=== PATIENT | female | born 1985 | race Caucasian/White ===

== ENCOUNTER 2022-09-21 08:07 | Outpatient (REF) | payer OTHER, SELFPAY ==
--- NOTE | ~2022-09-21 | CT_ITS ---
EXAMINATION: CT ANGIOGRAM BRAIN WITH CONTRAST CLINICAL INFORMATION: Cerebral aneurysm. COMPARISON: None. TECHNIQUE: Test bolus sequences followed by intravenous administration 75 mL of Omnipaque 350. Helical imaging was performed in the axial plane from the skull base to the skull vertex. Delayed postcontrast imaging of the head was also performed. The data was processed at the geodetic surveyor technologist workstation for generation of MIP sequences. Angled MIPs and volume rendered reformatted images were also generated at an offline 3D workstation. This CT examination was performed using dose optimization techniques as appropriate, variously including the following: *Automated exposure control *Adjustment of mA and/or kV according to patient size (this includes techniques or standardized protocols for targeted exams where dose is matched to indication/reason for exam; i.e. extremities or head) *Use of iterative reconstruction technique DLP: 2067 mGy-cm FINDINGS: Brain: There is no intracranial hemorrhage, large acute infarction, or mass lesion. The ventricles are normal in size and configuration without evidence of hydrocephalus. There is no abnormal intracranial enhancement. The dural venous sinuses are normally opacified. Head CTA: No definite aneurysm is seen. The anterior and posterior circulation arteries appear patent. There is no evidence of focal stenosis. No occlusion is seen. CT/CT angio head IMPRESSION: No definite aneurysm is seen. If there is evidence of intracranial aneurysm on prior imaging and the images are uploaded, a comparison will be made and an addendum issued.
[2022-09-21] MEDS: iohexoL 350 MG/ML 100 ML INFUS..BTL 75 ML IV (09:08)
== END 2022-09-21 08:08 | disposition home or self-care (01) ==
LOC: HO.CT 08:07
PROVIDERS: Visit Provider Psychiatry & Neurology Neurology
DX: I67.1 Cerebral aneurysm, nonruptured (principal)
CPT/HCPCS: 70496; Q9967

== ENCOUNTER 2023-11-02 09:13 | Day surgery (SDC) | payer BC, SELFPAY ==
--- NOTE | ~2023-11-02 | FL_ITS ---
Fluoroscopic lumbar puncture Indication: Pseudotumor cerebra Risks and benefits and possible complications were discussed with the patient and the consent form was signed. Patient was placed prone on the fluoroscopy table. The back was prepped and draped in routine sterile fashion. Betadine was used as a skin antiseptic. Utilizing fluoroscopic guidance, the L2-3 level was accessed with a 22 gague Eric spinal needle and clear CSF fluid obtained. Opening pressure was 19 cm H20 in the left lateral decubitus position. 8 cc of fluid was sent for analysis. The needle was removed without immediate complications. Total fluoroscopy time: 0.2 min FL/FL guided lumbar puncture LP Impression: Fluoroscopic lumbar puncture This procedure was performed by Dano Lawrence PA-C and supervised by Dr. Gabriel.
--- OUTSIDE RECORDS SUMMARY | 2023-11-02 09:15 | XMS_ITS | Continuity of Care Document ---
Author Organization [facility] Address [address] [place] [address]- Care Team Providers Care Cost Estimating Clerk Name Role Phone Alex Oropeza MD Primary Care Physician [place] [facility] [place]13/22 [facility] [address] [place], [place] [address] Allergies, Adverse Reactions, Alerts Substance Reaction Severity Status penicillins Active Immunizations Given and Recorded Vaccine Date Status Refusal Reason SARS-CoV-2 (COVID-19) mRNA BNT-162b2 vac 08/23/21 Recorded SARS-CoV-2 (COVID-19) mRNA BNT-162b2 vac 11/28/20 Recorded SARS-CoV-2 (COVID-19) mRNA BNT-162b2 vac 11/07/20 Recorded influenza virus vaccine, inactivated 04/26/20 Gino rded tetanus/diphtheria/pertussis, acel(Tdap) 04/13/17 Recorded tetanus/diphtheria/pertussis, acel(Tdap) 11/08/10 Recorded Medications amitriptyline 25 mg oral tablet 2, tablet, By Mouth, Daily at bedtime, # 60 tablet, Refills 2, Maintenance, 09/17/22 10:20:00 EST, Route to Pharmacy Electronically, [id number], 165, cm, 12/27/21 8:30:00 EDT, Height, 71, kg, 11/03/20 11:22:00 EDT, Dry Weight Start Date: 09/17/22 Status: Ordered cyclobenzaprine 5 mg oral tablet 1 tablet = 5 mg, By Mouth, 3 times a day, PRN Spasm, # 30 tablet, 0 Refills, Maintenance, 09/13/22 19:53:00 EST, [facility]/pharmacy #[id number], Partial fill upon patient request if the prescription is for a schedule II opioid drug., 165, cm, 12/27/21 8:30:00 EDT... Start Date: 09/13/22 Status: Ordered Excedrin By Mouth, Every 6 hours, 0 Refills, Maintenance, 09/23/20 9:15:00 EST, Partial fill upon patient request if the prescription is for a schedule II opioid drug. Start Date: 09/23/20 Status: Ordered Saxenda 18 mg/3 mL subcutaneous solution 0 Refills, Maintenance, 02/08/22 21:03:00 EDT, Partial fill upon patient request if the prescription is for a schedule II opioid drug. Start Date: 02/08/22 Status: Ordered triamcinolone 55 mcg/inh nasal spray 1 sprays, Daily, 0 Refills, Maintenance, 12/14/21 12:29:00 EDT, Partial fill upon patient request if the prescription is for a schedule II opioid drug. Start Date: 12/14/21 Status: Ordered Tylenol 8 Hour 650 mg oral tablet, extended release 2 tablet = 1,300 mg, By Mouth, Every 8 hours, 0 Refills, Maintenance, 09/23/20 9:15:00 EST, Partialfill upon patient request if the prescription is for a schedule II opioid drug. Start Date: 09/23/20 Status: Ordered Problem List Condition Confirmation Course Effective Dates Status H ealth Status Informant Allergic rhinitis Confirmed 02/19/16 Active Gastroesophageal reflux disease Confirmed 02/19/16 Active Migraine; Dr Gonzalez Confirmed 02/19/16 Active Obese class I Confirmed Active Social History Social History Type Response Smoking Status Never (less than 100 in lifetime) entered on: 09/23/20 Sex Patient Care team information Care Team Personnel Name: Alex Oropeza MD Position: [facility] Primary Care Physician Member Role: PCP Address: Address: [address] [place] [address]- Care Team Related Persons Name: GRACIE BOB Address: home [address] [place] [id number]
--- OUTSIDE RECORDS SUMMARY | 2023-11-02 09:15 | XMS_ITS | Continuity of Care Document ---
Author Organization [facility] Address [address] [place] [address]- Care Team Providers Care Computer Numerical Control Machinist Name Role Phone Alex Oropeza MD Primary Care Physician [place] [facility] [place] 09/19/22 [facility] [address] [place], [place] [address] Allergies, Adverse Reactions, Alerts Substance Reaction [...] 09/17/22 10:20:00 EST, Route to Pharmacy Electronically, [id number], 165, cm, 12/27/21 8:30:00 EDT, Height, 71, kg, 11/03/20 11:22:00 EDT, Dry Weight Start Date: 09/17/22 Status: Ordered cyclobenzaprine 5 mg oral tablet 1 tablet = 5 mg, By Mouth, 3 times a day, PRN Spasm, # 30 tablet, 0 Refills, Maintenance, 09/13/22 19:53:00 EST, [facility]/pharmacy #[id number], Partial fill upon patient request if [...] Team Personnel Name: Alex Oropeza MD Position: [facility] Primary Care Physician Member Role: PCP Address: Address: [address] [place] [address]- Care Team Related Persons Name: GRACIE BOB Address: home [address] [place] [id number]
--- OUTSIDE RECORDS SUMMARY | 2023-11-02 09:15 | XMS_ITS | Continuity of Care Document ---
Author Organization [facility] Address [address] [place] [address]- Care Team Providers Care Strategic Consultant Name Role Phone Alex Oropeza MD Primary Care Physician [phone] Encounter [facility] [place] Date(s): 04/06/23 - 05/06/23 [facility] [address] [place], [place] [address] Allergies, Adverse Reactions, Alerts Substance Reaction Severity Status penicillins Active Immunizations Given and Recorded Vaccine Date Status Refusal Reason SARS-CoV-2 (COVID-19) mRNA BNT-162b2 vac 08/23/21 Recorded SARS-CoV-2 (COVID-19) mRNA BNT-162b2 vac 11/28/20 Recorded SARS-CoV-2 (COVID-19) mRNA BNT-162b2 vac 11/07/20 Recorded influenza virus vaccine, inactivated 04/26/20 Gino rded tetanus/diphtheria/pertussis, acel(Tdap) 04/13/17 Recorded tetanus/diphtheria/pertussis, acel(Tdap) 11/08/10 Recorded Medications acetic acid-hydrocortisone otic 2%-1% solution See Instructions, 2 drops each ear BID prn itching, # 10 mL, 2 Refills, Maintenance, 04/11/23 8:16:00 EDT, [facility]/pharmacy #[id number], Partial fill upon patient request if the prescription is for a schedule II opioid drug., 2 drops each ear BID prn itching, 1... Start Date: 04/11/23 Status: Ordered amitriptyline 25 mg oral tablet 2, tablet, By Mouth, Daily at bedtime, # 60 tablet, Refills 2, Maintenance, 09/17/22 10:20:00 EST, Route to Pharmacy Electronically, [id number], 165, cm, 12/27/21 8:30:00 EDT, Height, 71, kg, 11/03/20 11:22:00 EDT, Dry Weight Start Date: 09/17/22 Status: Ordered cyclobenzaprine 5 mg oral tablet 1 tablet = 5 mg, By Mouth, 3 times a day, PRN Spasm, # 45 tablet, 1 Refills, Maintenance, 01/29/23 16:30:00 EDT, [facility]/pharmacy #[id number], Partial fill upon patient request if the prescription is for a schedule II opioid drug., 165, cm, 12/27/21 8:30:00 EDT... Start Date: 01/29/23 Status: Ordered Excedrin By Mouth, Every 6 hours, 0 Refills, Maintenance, 09/23/20 9:15:00 EST, Partial fill upon patient request if the prescription is for a schedule II opioid drug. Start Date: 09/23/20 Status: Ordered triamcinolone 55 mcg/inh nasal spray [...] opioid drug. Start Date: 09/23/20 Status: Ordered Wegovy (1.7 mg dose) subcutaneous solution INJECT 1 PEN INTO SKIN ONCE WEEKLY Start Date: 04/11/23 Status: Ordered Problem List Condition Confirmation Course Effective Dates Status H ealth Status Informant Allergic rhinitis Confirmed 02/19/16 Active Gastroesophageal reflux disease Confirmed 02/19/16 Active Migraine; Dr Gonzalez Confirmed 02/19/16 Active Social History Social History Type Response Smoking Status Never (less than 100 in lifetime) entered on: 09/23/20 Sex Patient Care team information Care Team Personnel Name: Alex Oropeza MD Position: S Physician - Primary Care Member Role: PCP Address: Address: [address] [place] [address] Team Related Persons Name: GRACIE BOB Address: home [address] [place] [address]
--- OUTSIDE RECORDS SUMMARY | 2023-11-02 09:15 | XMS_ITS | Continuity of Care Document ---
Author Organization [facility] Address [address] [place] [address]- Care Team Providers Care Optical Glass Etcher Name Role Phone Alex Oropeza MD Primary Care Physician [phone] [place] [facility] [place] - 10/05/[address] [address]- Encounter Diagnosis Postoperative state(Discharge Diagnosis) - 10/04/20 Acute blood loss anemia(Discharge Diagnosis) - 10/04/20 Discharge Disposition: A-D/C Home Attending Physician: Shiloh Wolff MD Admitting Physician: Shiloh Wolff MD Referring Physician: Shiloh Wolff MD Allergies, Adverse Reactions, Alerts Substance Reaction Severity Status penicillins Active Medications amitriptyline 25 mg oral tablet 25 mg, 1, tablet, By Mouth, Daily at bedtime, Refills 0, Maintenance, 09/23/20 9:15:00 EST, Partialfill upon patient request if the prescription is for a schedule II opioid drug. Start Date: 09/23/20 Status: Ordered Excedrin By Mouth, Every 6 hours, 0 Refills, Maintenance, 09/23/20 9:15:00 EST, Partial fill upon patient request if the prescription is for a schedule II opioid drug. Start Date: 09/23/20 Status: Ordered ibuprofen 600 mg oral tablet 600 mg, 1, tablet, By Mouth, Every 6 hours, PRN, # 40 tablet, Refills 0, Tot. Refills 0, Acute 11/04/20 15:19:00 EDT, Pain , Moderate, 10/04/20 15:19:00 EDT, Route to Pharmacy Electronically, [facility] #[id number], Partial fill upon patient requ... Start Date: 10/04/20 Stop Date: 11/04/20 Status: Ordered oxyCODONE 5 mg oral tablet 5 mg, 1, tablet, By Mouth, Every 6 hours, PRN, May fill less than prescribed., # 10 tablet, Refills0, Tot. Refills 0, Acute 11/04/20 15:19:00 EDT, Pain , Severe, 10/04/20 15:19:00 EDT, Route to Pharmacy Electronically, [facility] #[id number], [place]... Start Date: 10/04/20 Stop Date: 11/04/20 Status: Ordered Tylenol 325 mg oral tablet 325 mg, 1, tablet, By Mouth, Every 4 hours, # 60 tablet, Refills 0, Tot. Refills 0, Acute 11/04/20 15:19:00 EDT, 10/04/20 15:19:00 EDT, Route to Pharmacy Electronically, [facility] #[id number], Partial fill upon patient request if the prescriptio... Start Date: 10/04/20 Stop Date: 11/04/20 Status: Ordered Tylenol 8 Hour 650 mg oral tablet, extended release 2 tablet = 1,300 mg, By Mouth, Every 8 hours, 0 Refills, Maintenance, 09/23/20 9:15:00 EST, Partialfill upon patient request if the prescription is for a schedule II opioid drug. Start Date: 09/23/20 Status: Ordered Problem List Diagnosis Diagnosis Type Effective Dates Health Status Clinical Service Informant Postoperative state Discharge Diagnosis 10/04/20 Acute blood loss anemia Discharge Diagnosis 10/04/20 Vital Signs Most recent to oldest [Reference Range]: 1 2 3 Weight 71.8 kg (10/05/20 4:50 AM) 69 kg (10/04/20 2:39 PM) Oxygen Saturation [94-100 %] 100 % (10/05/20 7:46 AM) 97 % (10/05/20 4:49 AM) 98 % (10/05/20 12:48 AM) Pulse Rate [55-90 bpm] 92 bpm *H* (10/05/20 7:46 AM) 92 bpm *H* (10/05/20 4:49 AM) 102 bpm *H* (10/05/20 12:48 AM) Blood Pressure [90-138/55-84 mm Hg] 108/70mm Hg (10/05/20 7:46 AM) 94/58mm Hg (10/05/20 4:49 AM) 99/56mm Hg (10/05/20 12:48 AM) Respiratory Rate [16-30 br/min] 18 br/min (10/05/20 7:46 AM) 18 br/min (10/05/20 4:49 AM) 18 br/min (10/05/20 12:48 AM) Temperature [96.8-100.4 DegF] 98.1 DegF (10/05/20 7:46 AM) 98.1 DegF (10/05/20 4:49 AM) 98 DegF (10/05/20 12:48 AM) Liters per Minute 2 L/min (10/04/20 6:10 PM) 2 L/min (10/04/20 6:05 PM) 2 L/min (10/04/20 6:00 PM) Mode of Delivery (Oxygen) Room air (10/05/20 7:46 AM) Room air (10/05/20 4:49 AM) Room air (10/05/20 12:48 AM) Blood pressure sites Arm, left (10/05/20 7:46 AM) Arm, left (10/05/20 4:49 AM) Arm, left (10/05/20 12:48 AM) Temperature Route Oral (10/05/20 7:46 AM) Oral (10/05/20 4:49 AM) Oral (10/05/20 12:48 AM) Dry Weight 69 kg (10/04/20 2:39 PM) Weight Obtained Via Bed scale (10/05/20 4:50 AM) Standing scale (10/04/20 2:39 PM) Dry Weight Obtained Via Standing scale (10/04/20 2:39 PM) Social History Social History Type Response Smoking Status Never (less than 100 in lifetime) entered on: 09/23/20 Sex
--- OUTSIDE RECORDS SUMMARY | 2023-11-02 09:15 | XMS_ITS | Continuity of Care Document ---
Author Organization [facility] Address [address] [place] [address]- Care Team Providers Care Fixed Income Portfolio Manager Name Role Phone Alex Oropeza MD Primary Care Physician [place] [facility] [place]/06[place]23 - 05/06/23 [facility] [address] [place], [place] [address] Allergies, Adverse Reactions, Alerts Substance Reaction Severity [...] mL, 2 Refills, Maintenance, 04/11/23 8:16:00 EDT, [facility]/pharmacy #[id number], Partial fill upon patient request if the prescription is for a schedule II opioid drug., 2 drops each ear BID prn itching, 1... Start Date: 04/11/23 Status: Ordered amitriptyline 25 mg oral tablet 2, tablet, By Mouth, Daily at bedtime, # 60 tablet, Refills 2, Maintenance, 09/17/22 10:20:00 EST, Route to Pharmacy Electronically, [id number], 165, cm, 12/27/21 8:30:00 EDT, Height, 71, kg, 11/03/20 11:22:00 EDT, Dry Weight Start Date: 09/17/22 Status: Ordered cyclobenzaprine 5 mg oral tablet 1 tablet = 5 mg, By Mouth, 3 times a day, PRN Spasm, # 45 tablet, 1 Refills, Maintenance, 01/29/23 16:30:00 EDT, [facility]/pharmacy #[id number], Partial fill upon patient request if [...] Primary Care Member Role: PCP Address: Address: [address] [place] [address] Team Related Persons Name: GRACIE BOB Address: home [address] [place] [address]
--- OUTSIDE RECORDS SUMMARY | 2023-11-02 09:15 | XMS_ITS | Continuity of Care Document ---
Author Organization [facility] Address [address] [place] [address]- Care Team Providers Care Blower Insulator Name Role Phone Alex Oropeza MD Primary Care Physician [phone] Encounter [facility] [place] Date(s): 03/28/22 - 04/27/22 [facility] [address] [place], [place] [address] Allergies, Adverse Reactions, Alerts Substance Reaction Severity Status penicillins Active Immunizations Given and Recorded Vaccine Date Status Refusal Reason SARS-CoV-2 (COVID-19) mRNA BNT-162b2 vac 08/23/21 Recorded SARS-CoV-2 (COVID-19) mRNA BNT-162b2 vac 11/28/20 Recorded SARS-CoV-2 (COVID-19) mRNA BNT-162b2 vac 11/07/20 Recorded influenza virus vaccine, inactivated 04/26/20 Gino rded tetanus/diphtheria/pertussis, acel(Tdap) 04/13/17 Recorded tetanus/diphtheria/pertussis, acel(Tdap) 11/08/10 Recorded Medications amitriptyline 25 mg oral tablet 25 [...] on: 09/23/20 Sex Patient Care team information Personnel Name: Alex Oropeza MD Address: Address: [address] [place] [address]
--- OUTSIDE RECORDS SUMMARY | 2023-11-02 09:15 | XMS_ITS | Continuity of Care Document ---
Author Organization [facility] Address [address] [place] [address]- Care Team Providers Care Prepress Specialist Name Role Phone Alex Oropeza MD Primary Care Physician Encounter [facility] [place] Date(s): 07/27/22 - 08/26/22 [facility] [address] [place], [place] [address] Allergies, Adverse Reactions, Alerts Substance Reaction Severity Status penicillins Active Immunizations Given and Recorded Vaccine Date Status Refusal Reason SARS-CoV-2 (COVID-19) mRNA BNT-162b2 vac 08/23/21 Recorded SARS-CoV-2 (COVID-19) mRNA BNT-162b2 vac 11/28/20 Recorded SARS-CoV-2 (COVID-19) mRNA BNT-162b2 vac 11/07/20 Recorded influenza virus vaccine, inactivated 04/26/20 Gino rded tetanus/diphtheria/pertussis, acel(Tdap) 04/13/17 Recorded tetanus/diphtheria/pertussis, acel(Tdap) 11/08/10 Recorded Medications amitriptyline 25 mg oral tablet 50 mg, 2, tablet, By Mouth, Daily at bedtime, # 60 tablet, Refills 0, Tot. Refills 0, Maintenance, 08/19/22 9:12:00 EST, Route to Pharmacy Electronically, [facility]/pharmacy #[id number], Partial fill upon patient request if the prescription is for a schedule II o... Start Date: 08/19/22 Status: Ordered Excedrin By Mouth, Every 6 [...] Team Personnel Name: Alex Oropeza MD Position: [facility] Primary Care Physician Member Role: PCP Address: Address: [address] [place] [address]- Care Team Related Persons Name: LISBETH GRACIE Address: [address] [address]
--- OUTSIDE RECORDS SUMMARY | 2023-11-02 09:15 | XMS_ITS | Continuity of Care Document ---
Author Organization [facility] ter Address [address] [place] [address]- Care Team Providers Care Principal Android Developer Name Role Phone Alex Oropeza MD Primary Care Physician Encounter [facility] [place] Date(s): 08/09/23 - 08/09/[address] [address] Discharge Disposition: A-D/C Home Attending Physician: Zahira Dumont MD Admitting Physician: Zahira Dumont MD Referring Physician: Zahira Dumont MD Allergies, Adverse Reactions, Alerts Substance Reaction [...] mL, 2 Refills, Maintenance, 04/11/23 8:16:00 EDT, [facility]/pharmacy #[id number], Partial fill upon patient request if the prescription is for a schedule II opioid drug., 2 drops each ear BID prn itching, 1... Start Date: 04/11/23 Status: Ordered amitriptyline 25 mg oral tablet 2, tablet, By Mouth, Daily at bedtime, # 60 tablet, Refills 2, Maintenance, 09/17/22 10:20:00 EST, Route to Pharmacy Electronically, [facility] STORE [id number], 165, cm, 12/27/21 8:30:00 EDT, Height, 71, kg, 11/03/20 11:22:00 EDT, Dry Weight Start Date: 09/17/22 Status: Ordered cyclobenzaprine 5 mg oral tablet 1 tablet = 5 mg, By Mouth, 3 times a day, PRN Spasm, # 45 tablet, 1 Refills, Maintenance, 01/29/23 16:30:00 EDT, [facility]/pharmacy #[id number], Partial fill upon patient request if [...] Active Migraine; Dr Gonzalez Confirmed 02/19/16 Active Procedures Procedure Date Related Diagnosis Body Site Status Hysteroscopic polypectomy 08/09/23 Completed Vital Signs Most recent to oldest [Reference Range]: 1 2 3 Height 165 cm (08/09/23 9:22 AM) 165 cm (08/06/23 4:35 PM) Weight 69.0 kg (08/09/23 9:22 AM) 67 kg (08/06/23 4:35 PM) Oxygen Saturation [94-100 %] 99 % (08/09/23 11:15 AM) 100 % (08/09/23 11:00 AM) 100 % (08/09/23 10:45 AM) Pulse Rate [55-90 bpm] 88 bpm (08/09/23 9:22 AM) Body Mass Index [18.5-24.99 kg/m2] 25.34 kg/m2 *H* (08/09/23 9:22 AM) 24.61 kg/m2 (08/06/23 4:35 PM) Blood Pressure [90-138/55-84 mm Hg] 140/90mm Hg *H* (08/09/23 11:15 AM) 131/85mm Hg (08/09/23 11:00 AM) 117/77mm Hg (08/09/23 10:45 AM) Respiratory Rate [16-30 br/min] 20 br/min (08/09/23 11:15 AM) 15 br/min *L* (08/09/23 11:00 AM) 15 br/min *L* (08/09/23 10:45 AM) Temperature [96.8-100.4 DegF] 98.4 DegF (08/09/23 11:15 AM) 98.6 DegF (08/09/23 10:45 AM) 97.7 DegF (08/09/23 9:22 AM) Mode of Delivery (Oxygen) Room air (08/09/23 10:45 AM) Room air (08/09/23 9:22 AM) Blood pressure sites Arm, right (08/09/23 10:45 AM) Arm, right (08/09/23 9:22 AM) Temperature Route Temporal (08/09/23 11:15 AM) Temporal (08/09/23 10:45 AM) Temporal (08/09/23 9:22 AM) Dry Weight 69.0 kg (08/09/23 9:22 AM) 67 kg (08/06/23 4:35 PM) Weight Obtained Via Standing scale (08/09/23 9:22 AM) Patient/family stated (08/06/23 4:35 PM) Dry Weight Obtained Via Standing scale (08/09/23 9:22 AM) Patient/family stated (08/06/23 4:35 PM) Social History Social History Type Response Smoking Status Never (less than 100 in lifetime) entered on: 09/23/20 Sex Note * Stephie Lynn RN: PERFORM Event Display: Discharge/Transfer Note Hospital Authored Date: [id number] Nursing Discharge Note Entered On: 08/09/2023 11:43 EST Performed On: 08/09/2023 11:42 EST by Stephie Lynn RN Nursing Discharge Note 2 Discharge Time : 08/09/2023 11:42 EST Discharge Level of Care at Discharge : Home/Long Term/Foster Care Patient Left Unit Via : Wheelchair Patient Accompanied Off Unit with : Significant other DC Instructions Provided & Signed by Pt : Yes Patient Understands D/C Instructions : Yes Verbalized Understanding of D/C Plan By : Family, Patient Patient Instructions Discharge Signed : Yes Did Pt have Specialty Bed or Wound Vac : No Stephie Lynn RN - 08/09/2023 11:42 EST * Stephie Lynn RN: PERFORM Event Display: Patient Education/Instruction Authored Date: [id number] Surgery Adult Discharge Instructions [place] [id number] Name: PEDRO GALVEZ : 1985?? Visit: 08/09/2023 08:59?? Current Date: 08/09/2023 11:27 ?? Account: [id number]?? Surgery Discharge Instructions We would like to thank you for allowing us to assist you with your healthcare needs. The following includes patient education materials and information regarding your injury/illness. Our entire staffstrives to provide an excellent experience for our patients and their families. PLEASE ENSURE YOU FOLLOW-UP PER THE INSTRUCTIONS BELOW! ?? YOUR OPINION IS IMPORTANT TO US! Please complete the survey you may receive by mail or email. Your feedback will be used to make improvements to the healthcare experiences of our patients and their families. Surveys are administered by [employer] ?? If further treatment with your primary care physician or another doctor is recommended, it is important for you to keep the appointment. Call your primary care physician or return to the Emergency Department immediately if your condition worsens, fails to improve, or new symptoms develop. If you need to find a doctor, you can call [facility] for a referral at [phone] or toll free at [phone] ([phone]) or log in to [email or web address].. ?? [facility], in keeping with [facility] guidance, no longer requires face masks for staff, patientsor visitors in most situations. Similiar to time spent indoors at other locations, there is the chance that you were exposed to repiratory viruses during your time with us (such as flu or COVID-19). If you develop symptoms concerning for a viral respiratory infection, please seek testing (and treatment if indicated) from your medical provider or home test kit. ?? You can view and manage your care through the patient portal or by using a health care jose of your choosing. [employer] is a website that allows you to securely view your medical information including your hospital discharge summary, office visit summaries, medications and follow-up visits. You can also request appointments, renew medications, and request access to your medical information using a health care jose of your choosing, or just ask a question. You are entitled to know the individuals who participated in your treatment. This information is available within your medical record and will be provided upon your request. You can enroll at [email or web address] or register d uring your next office visit. You have been discharged from [facility], Patient Care Unit: [facility]??. If you have any questions regarding these instructions after you leave, please call us and we will be happy to assist you. [facility] Your Care Team Attending Physician Zahira Dumont MD?? Consulting Providers Socorro Kiser MD?? Discharging Providers Georgette Blackburn MD Reason for Admission AUBDS CS Your Diagnosis Abnormal uterine bleeding Endometrial polyp Primary Care Provider Alex Oropeza MD? Advance Directive Health Care Proxy on File Yes - Health Care Proxy What to do next Instructions From Your Doctor ?? Orders? 08/09/23 10:35:00 EST?? Instructions from your Care Team ?? You received Tylenol 975mg and Celebrex??400mg 08/09/23 at 9:30am ?? You Need to Schedule the Following Appointments Follow Up with??Zahira Dumont Where: [address] [place] [address] [facility], [place] [address]- Business (1) Follow Up with??Alex Oropeza When:??In 0 days Discharge Medications PEDRO GALVEZ :1985 Visit Date:08/09/2023 Medications: Please continue your medications until treatment is completed or stopped by your provider. You may resume your daily prescription medications. Discuss any questions related to medications with your provider. What How Much When Instructions Next Dose Unchanged Acetaminophen (Tylenol 8 Hour 650 mg oral tablet, extended release) 2 tab(s) Oral Every 8 hours Unchanged Acetic Acid/ Hydrocortisone Otic (acetic acid-hydrocortisone otic 2%- 1% solution) See instructions 2 drops each ear BID prn itching ?? Unchanged amiTRIPTYLINE (amitriptyline 25 mg oral tablet) 2 tab(s) Oral Daily at Bedtime Unchanged Apap/ Asa/ Caffeine (Excedrin) Oral Every 6 hours Unchanged Cyclobenzaprine (cyclobenzaprine 5 mg oral tablet) 1 tab(s) Oral 3 times a day as needed for Spasm Unchanged semaglutide (Wegovy (1.7 mg dose) subcutaneous solution) INJECT 1 PEN INTO SKIN ONCE WEEKLY ?? Unchanged Triamcinolone Nasal (triamcinolone 55 mcg/ inh nasal spray) 1 spray(s) Daily Allergies (NKA means No Known Allergies) penicillins Education Materials Below is the list of Educational Leaflet Providered with your Discharge Instructions. Surgery Voiding Instructions?? Surgery Medical Daystay Surgical Overnight Discharge Instructions?? Valuables and Belongings I fully understand and agree that [facility] accepts no responsibility for all my personal property including clothing, toilet articles, radios, jewelry, dentures, hearing aids, rings, money, or any other property that is in my possession or is brought to me after admission. I understand certain valuables may be placed in a hospital safe for a short period of time. I understand that the hospital is not liable for loss or damage due to accident, fire, or other natural occurrence while said property is in the safe. I accept full responsibility for any personal property that I keep with me, and will not hold the hospital responsible in case of loss or disappearance. I acknowledge that i have been encouraged to send valuables and belongings home. ?? Review of Valuable and Belonging List: With patient, With family Date for Pt to Sign Valuables/Belongings: 08/09/23 09:22:00 ?? Valuables & Belongings ?? Clothes Electronic devices Jewelry Monetary Items Personal devices Miscellaneous Medications (Valuables) Valuables at Bedside Pants, Shirt, Shoes, Undergarments ? Purse ? Valuables Sent Home ?? Cell phone ? Valuables Sent to Security ? Other Discharge Information ? Pulmonary Rehab Status?? Pulmonary Rehab Discharge Status?? Respiratory Rate: 20 br/min ? Common Emergency Awareness Tips IS IT A STROKE? Act FAST and Check for these signs: FACE Does the face look uneven? ARM Does one arm drift down? SPEECH Does their speech sound strange? TIME Call at any sign of stroke ?? Heart Attack Signs Chest discomfort: Most heart attacks involve discomfort in the center of the chest and lasts more than a few minutes, or goes away and comes back. It can feel like uncomfortable pressure, squeezing, fullness or pain. Discomfort in upper body: Symptoms can include pain or discomfort in one or both arms, back, neck, jaw or stomach. Shortness of breath: With or without discomfort. Other signs: Breaking out in a cold sweat, nausea, or lightheaded. Remember, MINUTES DO MATTER. If you experience any of these heart attack warning signs, call to get immediate medical attention! ?? Smoking can increase your chances of developing chronic health problems and can cause harmful effects to other family members in your house. If you smoke, you are strongly encouraged to quit. Please call [facility] at [phone] or [phone] ([phone]) or log in to [email or web address] for referrals to smoking cessation programs. ?? The National Suicide Prevention Hotline is available 05/02 if you or someone you know needs to find a reason to keep living. By calling 0-644-971-trgn (6961) you'll be connected to a skilled, trained counselor at a crisis center in your area. SURGERY DISCHARGE INSTRUCTIONS SIGNATURE PAGE PEDRO GALVEZ Location:[facility] Registration Date and Time:08/09/2023 08:59 EST Primary Care Physician: Alex Oropeza MD, Attending Physician: Zahira Dumont MD, I PEDRO GALVEZ, have received the above patient education materials/instructions and have verbalized understanding. If ambulance or transport services are being used I further acknowledge being given a choice of service. ?? If you need to contact me, please call me at this number: . Patient/Bottom Saw Operator Name: Patient/Bottom Saw Operator Signature: Relationship to Patient: Witness Name/Signature: Date: * Stephie Lynn RN: PERFORM, SIGN, VERIFY Event Display: Patient Education Handout Authored Date: [id number] * Stephie Lynn RN: PERFORM Event Display: Patient Education Leaflets Authored Date: [id number] Surgery Voiding Instructions ?? 305 Home Voiding Instructions ?? You should pass urine 6-8 hours after you are discharged from the [facility] Room. The amount should be about one cup of urine with each voiding. Be aware that you should feel like you are emptying your bladder completely. If you are passing very small amounts of urine frequently it could be over-flow and you may not be emptying your bladder. Things to try to encourage urination: Drink warm coffee or tea ??? unless your physician told you not to. Blow bubble through your straw into a small glass of water. Trickle lukewarm water onto your private area. Walk around as much as able. Let the faucet run slowly. Put your hand in warm water. Try to relax. If you have any concerns about urination, in the above time frame after your discharge, you should call your Doctor. ? * Stephie Lynn RN: PERFORM Event Display: Patient Education Leaflets Authored Date: [id number] Surgery Medical Daystay Surgical Overnight Discharge Instructions ?? 295 Medical Daystay/Surgical Overnight Discharge Instructions ? Since your coordination and judgment may be altered by medication and/or anesthesia, a responsible adult must drive you home from the hospital. ? If you have received medication for pain or sedation while under our care, you should not drive, operate machinery, drink alcohol, or sign any legal documents for 24 hours.?? You should have someone with you at home tonight. ? Remain at home the day of discharge.?? You may be up and about unless otherwise instructed by your physician. ? You may resume your daily prescription medication schedule.?? Any depressant medication should be avoided for 24 hours unless otherwise instructed by your surgeon or anesthesiologist. ? Call your physician for a follow-up appointment.? If you experience unusual or severe pain not relied by your pain medication, excessive bleedingor drainage, persistent nausea and vomiting, excessive swelling or redness, foul odor from incisionsite or fever over 100.6F, you need to call your physician. ? A follow-up phone call by a nurse will be made the day after your procedure.?? If you have stayed with us over night, you will not be receiving a follow-up phone call. ? Nausea and vomiting are a common side effect of prescription pain medication.?? We recommend that pills are not taken on an empty stomach.?? While taking any prescription pain medication you should not drive or drink alcohol. ? Patient Care team information Care Team Personnel Name: Alex Oropeza MD Position: [facility] Physician - Primary Care Member Role: PCP Address: Address: [address] [place] [address]- Care Team Related Persons Name: GRACIE BOB Address: [address] [address]
--- OUTSIDE RECORDS SUMMARY | 2023-11-02 09:15 | XMS_ITS | Continuity of Care Document ---
Author Organization [facility] Heather Anguiano [facility] Address [address] [place] [address]- Care Team Providers Care Synthetic Staple Extruder Name Role Phone Alex Oropeza MD Primary Care Physician [id number] Date(s): 05/06/21 - 06/05/21 [facility] Heather [facility] [address] [place] [address]- Attending Physician: Migue Soto Admitting Physician: Migue Soto Referring Physician: AdmMigue suarez Allergies, Adverse Reactions, Alerts Substance Reaction Severity [...] opioid drug. Start Date: 09/23/20 Status: Ordered Tylenol 8 Hour 650 mg oral tablet, extended release 2 tablet = 1,300 mg, By Mouth, Every 8 hours, 0 Refills, Maintenance, 09/23/20 9:15:00 EST, Partialfill upon patient request if the prescription is for a schedule II opioid drug. Start Date: 09/23/20 Status: Ordered Social History Social History Type Response Smoking Status Never (less than 100 in lifetime) entered on: 09/23/20 Sex
--- OUTSIDE RECORDS SUMMARY | 2023-11-02 09:15 | XMS_ITS | Continuity of Care Document ---
Author Organization [facility] Address [address] [place] [address]- Care Team Providers Care Party Plan Sales Agent Name Role Phone Alex Oropeza MD Primary Care Physician [phone] Encounter [facility] Date(s): 07/27/22 - 08/26/22 [facility] [address] [place], [place] [address] Allergies, Adverse Reactions, Alerts Substance Reaction [...] 08/19/22 9:12:00 EST, Route to Pharmacy Electronically, [facility]/pharmacy #[id number], Partial fill upon patient request if the [...] Team Personnel Name: Alex Oropeza MD Position: [facility] Primary Care Physician Member Role: PCP Address: Address: [address] [place] [address]- Care Team Related Persons Name: LISBETH GRACIE Address: [address] [address]
--- OUTSIDE RECORDS SUMMARY | 2023-11-02 09:15 | XMS_ITS | Continuity of Care Document ---
Author Organization [facility] Address [address] [place] [address]- Care Team Providers Care Fibre Cement Moulder Name Role Phone Alex Oropeza MD Primary Care Physician [place] [facility] [place] 05/21/23 - 06/20/23 [facility] [address] [place] [address]- [place] Allergies, Adverse Reactions, Alerts Substance Reaction Severity [...] mL, 2 Refills, Maintenance, 04/11/23 8:16:00 EDT, [facility]/pharmacy #[id number], Partial fill upon patient request if the prescription is for a schedule II opioid drug., 2 drops each ear BID prn itching, 1... Start Date: 04/11/23 Status: Ordered amitriptyline 25 mg oral tablet 2, tablet, By Mouth, Daily at bedtime, # 60 tablet, Refills 2, Maintenance, 09/17/22 10:20:00 EST, Route to Pharmacy Electronically, [facility] ST[facility] [id number], 165, cm, 12/27/21 8:30:00 EDT, Height, 71, kg, 11/03/20 11:22:00 EDT, Dry Weight Start Date: 09/17/22 Status: Ordered cyclobenzaprine 5 mg oral tablet 1 tablet = 5 mg, By Mouth, 3 times a day, PRN Spasm, # 45 tablet, 1 Refills, Maintenance, 01/29/23 16:30:00 EDT, [facility]/pharmacy #[id number], Partial fill upon patient request if [...] Team Personnel Name: Alex Oropeza MD Position: [facility] Physician - Primary Care Member Role: PCP Address: Address: [address] [place] [address] Care Team Related Persons Name: GRACIE BOB Address: home [address] [place] [address]
--- OUTSIDE RECORDS SUMMARY | 2023-11-02 09:15 | XMS_ITS | Continuity of Care Document ---
Author Organization [facility] Address [address] [place] [address]- Care Team Providers Care Rn Documentation Specialist Name Role Phone Alex Oropeza MD Primary Care Physician [phone] En[place] [facility] Date(s): 11/21/22 - 12/21/22 [facility] [address] [place] [address]- [place] Allergies, Adverse Reactions, Alerts Substance Reaction [...] 09/17/22 10:20:00 EST, Route to Pharmacy Electronically, [id number], 165, cm, 12/27/21 8:30:00 EDT, Height, 71, kg, 11/03/20 11:22:00 EDT, Dry Weight Start Date: 09/17/22 Status: Ordered cyclobenzaprine 5 mg oral tablet 1 tablet = 5 mg, By Mouth, 3 times a day, PRN Spasm, # 30 tablet, 0 Refills, Maintenance, 09/13/22 19:53:00 EST, [facility]/pharmacy #[id number], Partial fill upon patient request if [...] Team Personnel Name: Alex Oropeza MD Position: [facility] Physician - Primary Care Member Role: PCP Address: Address: [address] [place] [address]- Care Team Related Persons Name: GRACIE BOB Address: home [address] [place] [address]
--- OUTSIDE RECORDS SUMMARY | 2023-11-02 09:15 | XMS_ITS | Continuity of Care Document ---
Author Organization [facility] Address [address] [place] [address]- Care Team Providers Care Emergency Room Clinician Name Role Phone Alex Oropeza MD Primary Care Physician Encounter [facility] [place] [facility] Date(s): 12/27/21 - 01/26/22 [facility] [address] [place], [place] [address] Attending Physician: Migue Soto Admitting Physician: Migue Soto Referring Physician: AdmtrMigue Allergies, Adverse Reactions, Alerts Substance Reaction Severity [...] Date: 09/23/20 Status: Ordered Problem List Condition Effective Dates Status Health Status Inform ant Allergic rhinitis(Confirmed) 02/19/16 Active Gastroesophageal reflux disease(Confirmed) 02/19/16 Active Migraine(Confirmed) 02/19/16 Active Obese class I(Confirmed) Active Social History Social History Type Response Smoking Status Never (less than 100 in lifetime) entered on: 09/23/20 Sex
--- OUTSIDE RECORDS SUMMARY | 2023-11-02 09:15 | XMS_ITS | Continuity of Care Document ---
Author Organization [facility] Address [address] [place] [address]- Care Team Providers Care Travelers' Aid Worker Name Role Phone Alex Oropeza MD Primary Care Physician [place] [facility] [place]s): 12/01/21 - 12/31/21 [facility] [address] [place], [place] [address] Allergies, Adverse Reactions, Alerts [...]
--- OUTSIDE RECORDS SUMMARY | 2023-11-02 09:15 | XMS_ITS | Continuity of Care Document ---
Author Organization [facility] Heather Anguiano n's [facility] Address [address], [address], [place] [address]- Care Team Providers Care Architectural Drafter Name Role Phone Alex Oropeza MD Primary Care Physician [id number] Date[facility]s): 09/24/20 - 11/19/20 [facility] Heather Lozano's [facility] [address] [place], [place] [address] Attending Physician: Shiloh Wolff MD Admitting Physician: Shiloh Wolff MD Referring Physician: Alex Oropeza MD Allergies, Adverse Reactions, Alerts Substance Reaction [...]
--- OUTSIDE RECORDS SUMMARY | 2023-11-02 09:15 | XMS_ITS | Continuity of Care Document ---
Author Organization [facility] Address [address] [place] [address]- Care Team Providers Care Certified Surgical Tech/First Assistant Name Role Phone Alex Oropeza MD Primary Care Physician [phone] [place] [facility] Date(s): 09/14/22 - 10/14/22 [facility] [address] [place], [place] [address] Allergies, Adverse Reactions, Alerts Substance Reaction Severity [...] 09/17/22 10:20:00 EST, Route to Pharmacy Electronically, [facility] [id number], 165, cm, 12/27/21 8:30:00 EDT, Height, 71, kg, 11/03/20 11:22:00 EDT, Dry Weight Start Date: 09/17/22 Status: Ordered cyclobenzaprine 5 mg oral tablet 1 tablet = 5 mg, By Mouth, 3 times a day, PRN Spasm, # 30 tablet, 0 Refills, Maintenance, 09/13/22 19:53:00 EST, [facility]/pharmacy #[id number], Partial fill upon patient request [...] Team Personnel Name: Alex Oropeza MD Position: [facility] Primary Care Physician Member Role: PCP Address: Address: [address] [place] [address]- Care Team Related Persons Name: GRACIE BOB Address: [address] [address]
--- OUTSIDE RECORDS SUMMARY | 2023-11-02 09:15 | XMS_ITS | Continuity of Care Document ---
Author Organization [facility] Address [address], [address] [place] [address]- Care Team Providers Care First Officer And Flight Instructor Name Role Phone Alex Oropeza MD Primary Care Physician [id number] Date(s): 02/02/21 - 06/05/21 [facility] Heather Zhus [facility] [address], [address] [place] [address]- Attending Physician: Shiloh Wolff MD Admitting Physician: [...]
--- OUTSIDE RECORDS SUMMARY | 2023-11-02 09:15 | XMS_ITS | Continuity of Care Document ---
Author Organization [facility] Heather Anguiano n's [facility] Address [address], [address], [place] [address]- Care Team Providers Care Call Center Receptionist Name Role Phone Alex Oropeza MD Primary Care Physician [phone] [id number] Date(s): 10/14/20 - 11/26/20 [facility] Heather Lozano's [facility] [address] [place], [place] [address] Attending Physician: Shiloh Wolff MD Admitting [...]
--- OUTSIDE RECORDS SUMMARY | 2023-11-02 09:15 | XMS_ITS | Continuity of Care Document ---
Author Organization [facility] Address [address] [place] [address]- Care Team Providers Care Latin Dance Instructor Name Role Phone Alex Oropeza MD Primary Care Physician [phone] [id number] Date(s): 04/11/23 - 04/18/23 [facility] [address] [place] [address]- Encounter Diagnosis Physical exam(Discharge Diagnosis) - 04/11/23 Ear itching(Discharge Diagnosis) - 04/11/23 Varicose veins of legs(Discharge Diagnosis) - 04/11/23 Diabetes mellitus screening(Discharge Diagnosis) - 04/11/23 Attending Physician: Alex Oropeza MD Allergies, Adverse Reactions, [...] mL, 2 Refills, Maintenance, 04/11/23 8:16:00 EDT, [id number], Partial fill upon patient request if the prescription is for a schedule II opioid drug., 2 drops each ear BID prn itching, 1... Start Date: 04/11/23 Status: Ordered amitriptyline 25 mg oral tablet 2, tablet, By Mouth, Daily at bedtime, # 60 tablet, Refills 2, Maintenance, 09/17/22 10:20:00 EST, Route to Pharmacy Electronically, [id number], 165, cm, 12/27/21 8:30:00 EDT, Height, 71, kg, 11/03/20 11:22:00 EDT, Dry Weight Start Date: 09/17/22 Status: Ordered cyclobenzaprine 5 mg oral tablet 1 tablet = 5 mg, By Mouth, 3 times a day, PRN Spasm, # 45 tablet, 1 Refills, Maintenance, 01/29/23 16:30:00 EDT, [facility]/pharmacy #[id number], Partial fill upon patient request [...] Active Migraine; Dr Gonzalez Confirmed 02/19/16 Active Diagnosis Diagnosis Type Effective Dates Health Status Cl inical Service Informant Physical exam Discharge Diagnosis 04/11/23 Ear itching Discharge Diagnosis 04/11/23 Varicose veins of legs Discharge Diagnosis 04/11/23 Diabetes mellitus screening Discharge Diagnosis 04/11/23 Vital Signs Most recent to oldest [Reference Range]: 1 Height 165 cm (04/11/23 8:02 AM) Weight 67.9 kg (04/11/23 8:02 AM) Oxygen Saturation [94-100 %] 99 % (04/11/23 8:02 AM) Pulse Rate [55-90 bpm] 91 bpm *H* (04/11/23 8:02 AM) Body Mass Index [18.5-24.99 kg/m2] 24.94 kg/m2 (04/11/23 8:02 AM) Blood Pressure [90-138/55-84 mm Hg] 115/ 81mm Hg (04/11/23 8:02 AM) Blood pressure sites Arm, right (04/11/23 8:02 AM) Social History Social History Type Response Smoking Status Never (less than 100 in lifetime) entered on: 09/23/20 Sex Note * Chely Ron: PERFORM, SIGN, VERIFY Event Display: Patient Education/Instruction Authored Date: [id number] [facility] *[facility] Adult [facility] Clinical Summary Name PEDRO GALVEZ Age 37 Years 1985 PCP Alex Oropeza MD PCP Visit Date 04/11/2023 07:56:00 Additional Instructions: Scheduled Appointments?? Future Appointments ?No Future Appointments Scheduled Follow-Up Instructions ?? Diagnosis Encounter for general adult medical examination without abnormal findings; Asymptomatic varicose veins of bilateral lower extremities; Pruritus, unspecified; Encounter for screening for diabetes mellitus Medications: Please continue your medications until treatment is completed or stopped by your provider. Discuss any questions related to medications with your provider. New Medications [id number] [address] [place], [place] [id number], [phone] Acetic Acid/Hydrocortisone Otic (acetic acid-hydrocortisone otic 2%-1% solution) 2 drops each ear BID prn itching. Refills: 2. Next Dose: Medications to Continue with No Changes These medications were not printed or sent to your pharmacy Acetaminophen (Tylenol 8 Hour 650 mg oral tablet, extended release) 2 tab(s) Oral every 8 hours. Next Dose: amiTRIPTYLINE (amitriptyline 25 mg oral tablet) 2 tab(s) Oral Daily at Bedtime. Refills: 2. Next Dose: Apap/Asa/Caffeine (Excedrin) Oral every 6 hours. Next Dose: Cyclobenzaprine (cyclobenzaprine 5 mg oral tablet) 1 tab(s) Oral 3 times a day as needed Spasm. Refills: 1. Next Dose: semaglutide (Wegovy (1.7 mg dose) subcutaneous solution) INJECT 1 PEN INTO SKIN ONCE WEEKLY. Next Dose: Triamcinolone Nasal (triamcinolone 55 mcg/inh nasal spray) 1 spray(s) Daily. Next Dose: No Longer Take the Following Medications liraglutide (Saxenda 18 mg/3 mL subcutaneous solution) Allergy Info:?? penicillins Medications Given This Visit Future Orders ?No future orders Vital Signs Height 165 cm Weight 67.9 kg BMI 24.94 kg/m2 Blood Pressure 115 mm Hg/81 mm Hg Temperature Pulse Rate 91 bpm Respiratory Rate 02 Sat Mode of Delivery 99 %/ You can now view a summary of your hospital visit from the comfort of your home through a free online portal called [employer]. [employer] is a website that allows you to securely view your medical information including discharge summary, medications and follow-up visits. ??You can alsosend a secure electronic message to your doctor???s office to request appointments, renew medications or just ask a question. You can enroll at [email or web address] or register during your next office visit. Disclaimer:?? The information provided is of a general nature and is intended to be used in conjunction with the recommendations and advice of your health care practitioner. ??Every effort has been made to ensure that the information provided is accurate and complete at the time it is provided to you however, as your needs change, or, as new ??information becomes available, different or additional instructions may be required. If you have questions, please consult with your primary care provider or pharmacist, as appropriate. ??This information is not intended to serve as substitution for assessment and evaluation by a qualified health care provider. If you do not have a primary care provider, you may find a [facility] provider by calling [facility] [employer] at [phone]. [facility], in keeping with [facility] guidance, no longer requires face masks for staff, patientsor visitors in most situations. Similar to time spent indoors at other locations, there is the chance that you were exposed to respiratory viruses during your time with us (such as flu or COVID-19).? If you develop symptoms concerning for a viral respiratory infection, please seek testing (and treatment if indicated) from your medical provider or home test kit. For information about the plan of care including goals and instructions for your diagnosis, please see the patient education orders section of this document. Patient Education Materials?? The content of this educational material or handout may have been modified, supplemented, or adapted from its original content and format to support your individualized medical care. Patient Care team information Care Team Personnel Name: Alex Oropeza MD Position: S Physician - Primary Care Member Role: PCP Address: Address: [address] [place] [address]- Care Team Related Persons Name: GRACIE BOB Address: [address] [address]
--- OUTSIDE RECORDS SUMMARY | 2023-11-02 09:15 | XMS_ITS | Continuity of Care Document ---
Author Organization [facility] Heather Anguiano n's [facility] Address [address], [address], [place] [address]- Care Team Providers Care Display Department Manager Name Role Phone Alex Oropeza MD Primary Care Physician [facility] [id number] Date(s): 10/14/20 - 11/13/20 [facility] Heather Lozano's [facility] [address] [place], [place] [address] Allergies, Adverse Reactions, Alerts Substance Reaction [...]
--- OUTSIDE RECORDS SUMMARY | 2023-11-02 09:15 | XMS_ITS | Continuity of Care Document ---
Author Organization [facility] Address [address] [place] [address]- Care Team Providers Care County Treasurer Name Role Phone Alex Oropeza MD Primary Care Physician Encounter [facility] Date(s): 08/23/22 - 09/22/22 [facility] [address] [place], [place] [address] Allergies, Adverse Reactions, Alerts Substance [...] 09/17/22 10:20:00 EST, Route to Pharmacy Electronically, [id number], 165, cm, 12/27/21 8:30:00 EDT, Height, 71, kg, 11/03/20 11:22:00 EDT, Dry Weight Start Date: 09/17/22 Status: Ordered cyclobenzaprine 5 mg oral tablet 1 tablet = 5 mg, By Mouth, 3 times a day, PRN Spasm, # 30 tablet, 0 Refills, Maintenance, 09/13/22 19:53:00 EST, [facility]/pharmacy #[id number], Partial fill upon patient request if [...] Team Personnel Name: Alex Oropeza MD Position: [facility] Primary Care Physician Member Role: PCP Address: Address: [address] [place] [address]- Care Team Related Persons Name: GRACIE BOB Address: [address] [address]
--- OUTSIDE RECORDS SUMMARY | 2023-11-02 09:15 | XMS_ITS | Continuity of Care Document ---
Author Organization [facility] Address [address] [place] [address]- Care Team Providers Care Adult Basic Education Manager Name Role Phone Alex Oropeza MD Primary Care Physician Encounter [facility] Date(s): 03/28/22 - 04/27/22 [facility] [address] [place], [place] [address] Allergies, Adverse Reactions, Alerts Substance [...] Personnel Name: Alex Oropeza MD Address: Address: [address] [place] [address]
--- OUTSIDE RECORDS SUMMARY | 2023-11-02 09:15 | XMS_ITS | Continuity of Care Document ---
Author Organization [facility] Address [address] [place] [address]- Care Team Providers Care Ice Cream Scooper Name Role Phone Alex Oropeza MD Primary Care Physician [phone] Encounter [facility] R [id number] Date(s): 12/27/21 - 01/03/22 [facility] [address] [place] [address]- Encounter Diagnosis Migraine - Dr Gonzalez(Discharge Diagnosis) - 12/27/21 Obese class I(Discharge Diagnosis) - 12/27/21 Varicose veins of legs(Discharge Diagnosis) - 12/27/21 Attending Physician: Alex Oropeza MD Allergies, Adverse [...] Migraine(Confirmed) 02/19/16 Active Obese class I(Confirmed) Active Diagnosis Diagnosis Type Effective Dates Health Status Cl inical Service Informant Migraine - Dr Gonzalez Discharge Diagnosis 12/27/21 Non-Specified Obese class I Discharge Diagnosis 12/27/21 Varicose veins of legs Discharge Diagnosis 12/27/21 Vital Signs Most recent to oldest [Reference Range]: 1 Height 165 cm (12/27/21 8:30 AM) Weight 83.1 kg (12/27/21 8:30 AM) Oxygen Saturation [94-100 %] 98 % (12/27/21 8:30 AM) Pulse Rate [55-90 bpm] 58 bpm (12/27/21 8:30 AM) Body Mass Index [18.5-24.99] 30.52 *>HHI* (12/27/21 8:30 AM) Blood Pressure [90-138/55-84 mm Hg] 128/ 82mm Hg (12/27/21 8:30 AM) Blood pressure sites Arm, left (12/27/21 8:30 AM) Social History Social History Type Response Smoking Status Never (less than 100 in lifetime) entered on: 09/23/20 Sex
--- OUTSIDE RECORDS SUMMARY | 2023-11-02 09:15 | XMS_ITS | Continuity of Care Document ---
Author Organization [facility] Address [address] [place] [address]- Care Team Providers Care Network Applications Specialist Name Role Phone Alex Oropeza MD Primary Care Physician [place] [facility] Date(s): 07/27/22 - 08/26/22 [facility] [address] [place], [place] [address] Allergies, Adverse Reactions, Alerts Substance [...] 08/19/22 9:12:00 EST, Route to Pharmacy Electronically, [facility]/pharmacy #[id number], Partial fill upon patient request if the [...] Team Personnel Name: Alex Oropeza MD Position: [facility] Primary Care Physician Member Role: PCP Address: Address: [address] [place] [address]- Care Team Related Persons Name: LISBETH GRACIE Address: [address] [address]
[2023-11-02 09:27] VITALS: BMI 26.3
[2023-11-02 09:46] VITALS: BP 125/86; PULSE 88; RESP 16; TEMP 36.4; O2SAT 100
[2023-11-02 09:47] LABS: UPreg QC Valid YES; Urine Pregnancy NEGATIVE (NEGATIVE)
[2023-11-02 11:45] VITALS: BP 129/86; PULSE 76; RESP 16; TEMP 37.2; O2SAT 99
[2023-11-02 12:12] VITALS: BP 126/86; PULSE 81; RESP 16; O2SAT 100
[2023-11-02 12:35] VITALS: BP 120/78; PULSE 85; RESP 16; TEMP 36.9; O2SAT 100
[2023-11-02 12:48] LABS: Glucose CSF 54 mg/dL
[2023-11-02 12:49] LABS: CSF Appearance Clear, Colorless; CSF Tube # 1
[2023-11-02 13:06] LABS: Appearance CSF CLEAR; CSF Tube # 4
[2023-11-02 13:07] LABS: Color CSF COLORLESS; Lymphocytes CSF 100 %; Red Blood Cell CSF 0 MM*3; White Blood Cell CSF 1 MM*3
== END 2023-11-02 12:36 | disposition home or self-care (01) ==
PROVIDERS: Physician Assistant Surgical; PCP Internal Medicine; Visit Provider Psychiatry & Neurology Neurology
PROC: 009U3ZZ Drainage of Spinal Canal, Percutaneous Approach (ICD-10-PCS; CPT 62270; principal; 2023-11-02 11:00)
DX: G93.2 Benign intracranial hypertension (principal); G43.109 Migraine with aura, not intractable, without status migrainosus; G44.209 Tension-type headache, unspecified, not intractable; H93.A1 Pulsatile tinnitus, right ear; Z79.899 Other long term (current) drug therapy; Z88.0 Allergy status to penicillin
CPT/HCPCS: 62328; 81025; 82945; 84157; 87015; 87070; 87205; 89051

== ENCOUNTER → 2023-11-02 10:50 | Outpatient (BNV) | payer BC, SELFPAY | PROVIDERS: PCP Internal Medicine; Visit Provider Physician Assistant Surgical | DX: G93.2 Benign intracranial hypertension (principal) | CPT/HCPCS: 62328 ==

== ENCOUNTER 2025-07-07 07:53 | Outpatient (AMB) | payer OTHER, SELFPAY ==
--- OUTSIDE RECORDS SUMMARY | 2024-03-04 03:00 | XMS_ITS ---
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 Bag Inspector Name Role Phone SHAHEEN MCKEON Unavailable [phone] Encounters Encounter Location Date Provider Diagnosis [facility] [address] [place] [address] 03/04/2024 SHAHEEN MCKEON BMI 26.0-26.9,adult Z68.26 ; Dietary counseling and surveillance Z71.3 ; Hyperlipidemia, unspecified hyperlipidemia type E78.5 ; Migraine with aura and without status migrainosus, not intractable G43.109 and Overweight (BMI 25.0-29.9) E66.3 Assessments Encounter Date Diagnosis (ICD Code) Assessment Notes Treatment Notes Treatment Clinical Notes Section Notes 03/04/2024 BMI 26.0-26.9,adult (ICD-10 - Z68.26) #Weight Management 03/04/2024 _update labs Continue maintenance dosing, 2.4 mg weekly Discussed dual incretin Discussed importance of protein consumption for muscle maintenance, strength and resistance training as well as probiotics, B12 complex biotin , iron and other nutrients, To also help avoid telogen effluvium while on weight loss medications such as GLP-1 Total time spent today was 30 minutes of which greater than 50% was spent on coordinating and counseling Patient has been found to be overweight with a BMI of (25). Patient has overweight class per BMI standards We are a board certified obesity and weight management practice Patient has trialed behavioral modification, dietary restrictions and exercise for a minimum of 6 months The most recent [place] [employer] clinical endocrinologists and [place] [employer] guidelines recommend patients who have overweight BMI or obesity BMI, who also have metabolic syndrome, prediabetes, HLD, and other comorbidities or at risk of developing type 2 diabetes should aim for a weight loss goal of at least 10% of the baseline body weight Patient counseled regarding effects of GLP/GIP-1 agonists, and other FDA approved wgt loss meds with regards to a multifactorial approach of weight loss as mentioned above and not solely appetite suppression. We have discussed the mechanism of GLP-1's/GIP, dual incretins, appetitite suppressants I think this would be fantastic option for her given her metabolic workup and body composition We have discussed the risks and benefits and side effects including/and not limited to Sarcopenia, intestinal obstruction, constipation, nausea, lethargy, headache Discussed importance of protein consumption for muscle maintenance as well as strength and resistance training ,probiotics, B12 complex biotin , iron and other nutrients, To help avoid telogen effluvium We have discussed the lifelong requirement of nutritional supplementation And adherence to an exercise regimen as well as importance of follow-up We did discuss the neurohormonal changes that are occurring with these medications and Need for long-term Continued usage The patient understands and agrees There is no history of medullary thyroid cancer or multiple endocrine neoplasia There is also no history of cardiovascular disease, hypertension, palpitations, or arrhythmias In the setting of potential stimulant/amphetami ne use such as phentermine We have also discussed risks and benefits, and the use of compounded medications to help offset the national shortages as well as financial implications vs trade name drugs Patient was reassured and welcomed to the practice. We discussed that we stress a hollistic medical approach with emphasis on lifestyle modification. Patient was informed that a healthy lifestyle with exercise and good eating habits can help reduce his risk of medical complications. He is explained that obesity increases his risk of diabetes, cardiovascular disease, or organ damage. We spent a lot of time discussing the relationship between food, exercise, sleep, mental health and obesity. Patient was counseled on the importance EATING local, organic food when possible. Patient was educated on clean 15 and dirty dozen. I provided information about reading books called The Food Rules by Pete Pearson and Eat Fat Get Lean by Dr Thuan Cedillo. Self education is important in the journey for weight management. Patient was offered diagnostic testing. We want to measure visceral adiposity, advanced body composition, adverse lipids, fatty acid balance, risk for heart disease and atherosclerosis, markers of inflammation and genetic susceptibility. Patient was counseled on weight management and was advised to lose weight using A. Meal Replacement Products We discussed the lifelong requirement of nutritional supplementation and adherence to an exercise regimen as well as importance of dietary follow-up Patient was educated on the replacement products called optifast. This is a good way of taking fixed amount of calories. It has been shown in studies to be ineffective weight management tool. We also recommend maintaining adequate protein intake and muscle composition, 1.5mg/kg This however has to be coupled with lifestyle intervention as well as laboratory data and EKG monitoring. It is impossible to know how a person will tolerate complete meal replacement. The side effects of meal replacement and weight loss could include syncopal attacks, dizziness, gallstones, potential cholecystectomy, possible heart attack and even . The benefits of meal replacement would be potential weight loss but no guarantees can be made. Meal replacement products are not covered by insurance. Once the patient has bought these products we cannot return them B. Lifestyle management which includes several strategies as below 1. Eat a low carbohydrate good fat good protein diet. Eliminate refined carbohydrates from the diet. Continue blood sugar and sugared beverages. Eat local organic when possible. Cook your own meals. Read food labels. None about healthy snacks. Portion control and food with low glycemic index 2. Exercise regularly. Try to get at least 6000 steps a day. Use a predominant to track activity level. Consider using apps like ThisLife, myfitnesspal, lose it, stick as needed for self-monitoring and weight management. Consider group exercises. Consider hiring a personal banker. Regular exercise is saavedra to sustainable health and prevents as a buffer against weight regain 3. Sleep is most important for healing. Tried to sleep at least 8 hours a night. A good quality sleep needs a sleep ritual with ideal room temperature of around 68. It might help to take a shower and have no electronics in the room and sleep in a very dark room without artificial light. Start her sleep routine and get up early in the morning and go to bed on time 4. Make a social connection. Surround yourself with positive people with positive energy. Connect with friends and family. 5. Get into the habit of meditating and mindfulness while doing everything. 6. Go outside and connect with nature. C. Prescription medications Patient was educated on the use of prescription medications for medical weight loss. This is a growing list and includes phentermine, Topamax,Qsymia, contrave, belviq and saxenda. All prescription medications could have side effects including but not limited to kidney stones, seizure disorder cardiac arrhythmias heart attack pancreatitis etc. etc.. Patient was encouraged to read the prescription insert and have coaching with their pharmacist and make an informed decision about taking medication and know that these medications are being prescribed with good intentions and we do not know how a patient would react to her medication. Sudden medications are FDA approved for weight loss and there is also off label use depending on patient's inability to afford medications in an attempt to lose weight D. Behavioral counseling was done to establish a relationship between food and an mood. Patient was provided information about local counseling and psychiatry and Dr Smith at [facility]. We would like to cover regular topics and build on low glycemic eating exercise mindful eating, using yoga and meditation along with deep breathing and connecting with friends and family. E. MASS PAT reviewed, Patient's current medications were reviewed and opinion was given on medication that can cause weight gain and can be substituted F. Patient was assessed for risk with obesity including and not limiting to atherosclerosis heart disease stroke kidney disease, restrictive lung disease, irritable bowel syndrome and overall mortality. Risk of developing prediabetes diabetes and metabolic syndrome was discussed G. Therapeutic plan: We have decided to make therapeutic plan which would include choosing wisely on calories restricting portion getting active, tracking weight, getting good quality sleep and working on time management H. Patient will follow up in (4) weeks for weight management Of note, some information is being carried forward from prior records for informational purposes only and is being cited so that efficiency, safety and quality of the patient's care is not compromised This note was prepared using voice recognition software and direct typing Please excuse inadvertent puncher or typing errors, or uncorrected word substitutions Although every attempt has been made by the provider to proofread this document, occasional misspellings and typographical errors may still be present Due to the previous pandemic, and the use of personal protective equipment (PPE) This may decrease voice recognition accuracy Inadvertent puncher errors may occur 03/04/2024 Dietary counseling and surveillance (ICD-10 - Z71.3) #Weight Management 03/04/2024 _update labs Continue maintenance dosing, 2.4 mg weekly Discussed dual incretin Discussed importance of protein consumption for muscle maintenance, strength and resistance training as well as probiotics, B12 complex biotin , iron and other nutrients, To also help avoid telogen effluvium while on weight loss medications such as GLP-1 Total time spent today was 30 minutes of which greater than 50% was spent on coordinating and counseling Patient has been found to be overweight with a BMI of (25). Patient has overweight class per BMI standards We are a board certified obesity and weight management practice Patient has trialed behavioral modification, dietary restrictions and exercise for a minimum of 6 months The most recent [place] [employer] of clinical endocrinologists and [place] [employer] guidelines recommend patients who have overweight BMI or obesity BMI, who also have metabolic syndrome, prediabetes, HLD, and other comorbidities or at risk of developing type 2 diabetes should aim for a weight loss goal of at least 10% of the baseline body weight Patient counseled regarding effects of GLP/GIP-1 agonists, and other FDA approved wgt loss meds with regards to a multifactorial approach of weight loss as mentioned above and not solely appetite suppression. We have discussed the mechanism of GLP-1's/GIP, dual incretins, appetitite suppressants I think this would be fantastic option for her given her metabolic workup and body composition We have discussed the risks and benefits and side effects including/and not limited to Sarcopenia, intestinal obstruction, constipation, nausea, lethargy, headache Discussed importance of protein consumption for muscle maintenance as well as strength and resistance training ,probiotics, B12 complex biotin , iron and other nutrients, To help avoid telogen effluvium We have discussed the lifelong requirement of nutritional supplementation And adherence to an exercise regimen as well as importance of follow-up We did discuss the neurohormonal changes that are occurring with these medications and Need for long-term Continued usage The patient understands and agrees There is no history of medullary thyroid cancer or multiple endocrine neoplasia There is also no history of cardiovascular disease, hypertension, palpitations, or arrhythmias In the setting of potential stimulant/amphetami ne use such as phentermine We have also discussed risks and benefits, and the use of compounded medications to help offset the national shortages as well as financial implications vs trade name drugs Patient was reassured and welcomed to the practice. We discussed that we stress a hollistic medical approach with emphasis on lifestyle modification. Patient was informed that a healthy lifestyle with exercise and good eating habits can help reduce his risk of medical complications. He is explained that obesity increases his risk of diabetes, cardiovascular disease, or organ damage. We spent a lot of time discussing the relationship between food, exercise, sleep, mental health and obesity. Patient was counseled on the importance EATING local, organic food when possible. Patient was educated on clean 15 and dirty dozen. I provided information about reading books called The Food Rules by Pete Pearson and Eat Fat Get Lean by Dr Thuan Cedillo. Self education is important in the journey for weight management. Patient was offered diagnostic testing. We want to measure visceral adiposity, advanced body composition, adverse lipids, fatty acid balance, risk for heart disease and atherosclerosis, markers of inflammation and genetic susceptibility. Patient was counseled on weight management and was advised to lose weight using A. Meal Replacement Products We discussed the lifelong requirement of nutritional supplementation and adherence to an exercise regimen as well as importance of dietary follow-up Patient was educated on the replacement products called optifast. This is a good way of taking fixed amount of calories. It has been shown in studies to be ineffective weight management tool. We also recommend maintaining adequate protein intake and muscle composition, 1.5mg/kg This however has to be coupled with lifestyle intervention as well as laboratory data and EKG monitoring. It is impossible to know how a person will tolerate complete meal replacement. The side effects of meal replacement and weight loss could include syncopal attacks, dizziness, gallstones, potential cholecystectomy, possible heart attack and even . The benefits of meal replacement would be potential weight loss but no guarantees can be made. Meal replacement products are not covered by insurance. Once the patient has bought these products we cannot return them B. Lifestyle management which includes several strategies as below 1. Eat a low carbohydrate good fat good protein diet. Eliminate refined carbohydrates from the diet. Continue blood sugar and sugared beverages. Eat local organic when possible. Cook your own meals. Read food labels. None about healthy snacks. Portion control and food with low glycemic index 2. Exercise regularly. Try to get at least 6000 steps a day. Use a predominant to track activity level. Consider using apps like ThisLife, STEMpowerkidspal, lose it, stick as needed for self-monitoring and weight management. Consider group exercises. Consider hiring a personal banker. Regular exercise is saavedra to sustainable health and prevents as a buffer against weight regain 3. Sleep is most important for healing. Tried to sleep at least 8 hours a night. A good quality sleep needs a sleep ritual with ideal room temperature of around 68. It might help to take a shower and have no electronics in the room and sleep in a very dark room without artificial light. Start her sleep routine and get up early in the morning and go to bed on time 4. Make a social connection. Surround yourself with positive people with positive energy. Connect with friends and family. 5. Get into the habit of meditating and mindfulness while doing everything. 6. Go outside and connect with nature. C. Prescription medications Patient was educated on the use of prescription medications for medical weight loss. This is a growing list and includes phentermine, Topamax,Qsymia, contrave, belviq and saxenda. All prescription medications could have side effects including but not limited to kidney stones, seizure disorder cardiac arrhythmias heart attack pancreatitis etc. etc.. Patient was encouraged to read the prescription insert and have coaching with their pharmacist and make an informed decision about taking medication and know that these medications are being prescribed with good intentions and we do not know how a patient would react to her medication. Sudden medications are FDA approved for weight loss and there is also off label use depending on patient's inability to afford medications in an attempt to lose weight D. Behavioral counseling was done to establish a relationship between food and an mood. Patient was provided information about local counseling and psychiatry and Dr Smith at [facility]. We would like to cover regular topics and build on low glycemic eating exercise mindful eating, using yoga and meditation along with deep breathing and connecting with friends and family. E. MASS PAT reviewed, Patient's current medications were reviewed and opinion was given on medication that can cause weight gain and can be substituted F. Patient was assessed for risk with obesity including and not limiting to atherosclerosis heart disease stroke kidney disease, restrictive lung disease, irritable bowel syndrome and overall mortality. Risk of developing prediabetes diabetes and metabolic syndrome was discussed G. Therapeutic plan: We have decided to make therapeutic plan which would include choosing wisely on calories restricting portion getting active, tracking weight, getting good quality sleep and working on time management H. Patient will follow up in (4) weeks for weight management Of note, some information is being carried forward from prior records for informational purposes only and is being cited so that efficiency, safety and quality of the patient's care is not compromised This note was prepared using voice recognition software and direct typing Please excuse inadvertent puncher or typing errors, or uncorrected word substitutions Although every attempt has been made by the provider to proofread this document, occasional misspellings and typographical errors may still be present Due to the previous pandemic, and the use of personal protective equipment (PPE) This may decrease voice recognition accuracy Inadvertent puncher errors may occur 03/04/2024 Hyperlipidemia, unspecified hyperlipidemia type (ICD-10 - E78.5) #Weight Management 03/04/2024 _update labs Continue maintenance dosing, 2.4 mg weekly Discussed dual incretin Discussed importance of protein consumption for muscle maintenance, strength and resistance training as well as probiotics, B12 complex biotin , iron and other nutrients, To also help avoid telogen effluvium while on weight loss medications such as GLP-1 Total time spent today was 30 minutes of which greater than 50% was spent on coordinating and counseling Patient has been found to be overweight with a BMI of (25). Patient has overweight class per BMI standards We are a board certified obesity and weight management practice Patient has trialed behavioral modification, dietary restrictions and exercise for a minimum of 6 months The most recent [place] [employer] of clinical endocrinologists and [place] [employer] guidelines recommend patients who have overweight BMI or obesity BMI, who also have metabolic syndrome, prediabetes, HLD, and other comorbidities or at risk of developing type 2 diabetes should aim for a weight loss goal of at least 10% of the baseline body weight Patient counseled regarding effects of GLP/GIP-1 agonists, and other FDA approved wgt loss meds with regards to a multifactorial approach of weight loss as mentioned above and not solely appetite suppression. We have discussed the mechanism of GLP-1's/GIP, dual incretins, appetitite suppressants I think this would be fantastic option for her given her metabolic workup and body composition We have discussed the risks and benefits and side effects including/and not limited to Sarcopenia, intestinal obstruction, constipation, nausea, lethargy, headache Discussed importance of protein consumption for muscle maintenance as well as strength and resistance training ,probiotics, B12 complex biotin , iron and other nutrients, To help avoid telogen effluvium We have discussed the lifelong requirement of nutritional supplementation And adherence to an exercise regimen as well as importance of follow-up We did discuss the neurohormonal changes that are occurring with these medications and Need for long-term Continued usage The patient understands and agrees There is no history of medullary thyroid cancer or multiple endocrine neoplasia There is also no history of cardiovascular disease, hypertension, palpitations, or arrhythmias In the setting of potential stimulant/amphetami ne use such as phentermine We have also discussed risks and benefits, and the use of compounded medications to help offset the national shortages as well as financial implications vs trade name drugs Patient was reassured and welcomed to the practice. We discussed that we stress a hollistic medical approach with emphasis on lifestyle modification. Patient was informed that a healthy lifestyle with exercise and good eating habits can help reduce his risk of medical complications. He is explained that obesity increases his risk of diabetes, cardiovascular disease, or organ damage. We spent a lot of time discussing the relationship between food, exercise, sleep, mental health and obesity. Patient was counseled on the importance EATING local, organic food when possible. Patient was educated on clean 15 and dirty dozen. I provided information about reading books called The Food Rules by Pete Pearson and Eat Fat Get Lean by Dr Thuan Cedillo. Self education is important in the journey for weight management. Patient was offered diagnostic testing. We want to measure visceral adiposity, advanced body composition, adverse lipids, fatty acid balance, risk for heart disease and atherosclerosis, markers of inflammation and genetic susceptibility. Patient was counseled on weight management and was advised to lose weight using A. Meal Replacement Products We discussed the lifelong requirement of nutritional supplementation and adherence to an exercise regimen as well as importance of dietary follow-up Patient was educated on the replacement products called optifast. This is a good way of taking fixed amount of calories. It has been shown in studies to be ineffective weight management tool. We also recommend maintaining adequate protein intake and muscle composition, 1.5mg/kg This however has to be coupled with lifestyle intervention as well as laboratory data and EKG monitoring. It is impossible to know how a person will tolerate complete meal replacement. The side effects of meal replacement and weight loss could include syncopal attacks, dizziness, gallstones, potential cholecystectomy, possible heart attack and even . The benefits of meal replacement would be potential weight loss but no guarantees can be made. Meal replacement products are not covered by insurance. Once the patient has bought these products we cannot return them B. Lifestyle management which includes several strategies as below 1. Eat a low carbohydrate good fat good protein diet. Eliminate refined carbohydrates from the diet. Continue blood sugar and sugared beverages. Eat local organic when possible. Cook your own meals. Read food labels. None about healthy snacks. Portion control and food with low glycemic index 2. Exercise regularly. Try to get at least 6000 steps a day. Use a predominant to track activity level. Consider using apps like ThisLife, STEMpowerkidspal, lose it, stick as needed for self-monitoring and weight management. Consider group exercises. Consider hiring a personal banker. Regular exercise is saavedra to sustainable health and prevents as a buffer against weight regain 3. Sleep is most important for healing. Tried to sleep at least 8 hours a night. A good quality sleep needs a sleep ritual with ideal room temperature of around 68. It might help to take a shower and have no electronics in the room and sleep in a very dark room without artificial light. Start her sleep routine and get up early in the morning and go to bed on time 4. Make a social connection. Surround yourself with positive people with positive energy. Connect with friends and family. 5. Get into the habit of meditating and mindfulness while doing everything. 6. Go outside and connect with nature. C. Prescription medications Patient was educated on the use of prescription medications for medical weight loss. This is a growing list and includes phentermine, Topamax,Qsymia, contrave, belviq and saxenda. All prescription medications could have side effects including but not limited to kidney stones, seizure disorder cardiac arrhythmias heart attack pancreatitis etc. etc.. Patient was encouraged to read the prescription insert and have coaching with their pharmacist and make an informed decision about taking medication and know that these medications are being prescribed with good intentions and we do not know how a patient would react to her medication. Sudden medications are FDA approved for weight loss and there is also off label use depending on patient's inability to afford medications in an attempt to lose weight D. Behavioral counseling was done to establish a relationship between food and an mood. Patient was provided information about local counseling and psychiatry and Dr Smith at [facility]. We would like to cover regular topics and build on low glycemic eating exercise mindful eating, using yoga and meditation along with deep breathing and connecting with friends and family. E. MASS PAT reviewed, Patient's current medications were reviewed and opinion was given on medication that can cause weight gain and can be substituted F. Patient was assessed for risk with obesity including and not limiting to atherosclerosis heart disease stroke kidney disease, restrictive lung disease, irritable bowel syndrome and overall mortality. Risk of developing prediabetes diabetes and metabolic syndrome was discussed G. Therapeutic plan: We have decided to make therapeutic plan which would include choosing wisely on calories restricting portion getting active, tracking weight, getting good quality sleep and working on time management H. Patient will follow up in (4) weeks for weight management Of note, some information is being carried forward from prior records for informational purposes only and is being cited so that efficiency, safety and quality of the patient's care is not compromised This note was prepared using voice recognition software and direct typing Please excuse inadvertent puncher or typing errors, or uncorrected word substitutions Although every attempt has been made by the provider to proofread this document, occasional misspellings and typographical errors may still be present Due to the previous pandemic, and the use of personal protective equipment (PPE) This may decrease voice recognition accuracy Inadvertent puncher errors may occur 03/04/2024 Migraine with aura and without status migrainosus, not intractable (ICD-10 - G43.109) #Weight Management 03/04/2024 _update labs Continue maintenance dosing, 2.4 mg weekly Discussed dual incretin Discussed importance of protein consumption for muscle maintenance, strength and resistance training as well as probiotics, B12 complex biotin , iron and other nutrients, To also help avoid telogen effluvium while on weight loss medications such as GLP-1 Total time spent today was 30 minutes of which greater than 50% was spent on coordinating and counseling Patient has been found to be overweight with a BMI of (25). Patient has overweight class per BMI standards We are a board certified obesity and weight management practice Patient has trialed behavioral modification, dietary restrictions and exercise for a minimum of 6 months The most recent [place] [employer] of clinical endocrinologists and [place] [employer] guidelines recommend patients who have overweight BMI or obesity BMI, who also have metabolic syndrome, prediabetes, HLD, and other comorbidities or at risk of developing type 2 diabetes should aim for a weight loss goal of at least 10% of the baseline body weight Patient counseled regarding effects of GLP/GIP-1 agonists, and other FDA approved wgt loss meds with regards to a multifactorial approach of weight loss as mentioned above and not solely appetite suppression. We have discussed the mechanism of GLP-1's/GIP, dual incretins, appetitite suppressants I think this would be fantastic option for her given her metabolic workup and body composition We have discussed the risks and benefits and side effects including/and not limited to Sarcopenia, intestinal obstruction, constipation, nausea, lethargy, headache Discussed importance of protein consumption for muscle maintenance as well as strength and resistance training ,probiotics, B12 complex biotin , iron and other nutrients, To help avoid telogen effluvium We have discussed the lifelong requirement of nutritional supplementation And adherence to an exercise regimen as well as importance of follow-up We did discuss the neurohormonal changes that are occurring with these medications and Need for long-term Continued usage The patient understands and agrees There is no history of medullary thyroid cancer or multiple endocrine neoplasia There is also no history of cardiovascular disease, hypertension, palpitations, or arrhythmias In the setting of potential stimulant/amphetami ne use such as phentermine We have also discussed risks and benefits, and the use of compounded medications to help offset the national shortages as well as financial implications vs trade name drugs Patient was reassured and welcomed to the practice. We discussed that we stress a hollistic medical approach with emphasis on lifestyle modification. Patient was informed that a healthy lifestyle with exercise and good eating habits can help reduce his risk of medical complications. He is explained that obesity increases his risk of diabetes, cardiovascular disease, or organ damage. We spent a lot of time discussing the relationship between food, exercise, sleep, mental health and obesity. Patient was counseled on the importance EATING local, organic food when possible. Patient was educated on clean 15 and dirty dozen. I provided information about reading books called The Food Rules by Pete Pearson and Eat Fat Get Lean by Dr hTuan Cedillo. Self education is important in the journey for weight management. Patient was offered diagnostic testing. We want to measure visceral adiposity, advanced body composition, adverse lipids, fatty acid balance, risk for heart disease and atherosclerosis, markers of inflammation and genetic susceptibility. Patient was counseled on weight management and was advised to lose weight using A. Meal Replacement Products We discussed the lifelong requirement of nutritional supplementation and adherence to an exercise regimen as well as importance of dietary follow-up Patient was educated on the replacement products called optifast. This is a good way of taking fixed amount of calories. It has been shown in studies to be ineffective weight management tool. We also recommend maintaining adequate protein intake and muscle composition, 1.5mg/kg This however has to be coupled with lifestyle intervention as well as laboratory data and EKG monitoring. It is impossible to know how a person will tolerate complete meal replacement. The side effects of meal replacement and weight loss could include syncopal attacks, dizziness, gallstones, potential cholecystectomy, possible heart attack and even . The benefits of meal replacement would be potential weight loss but no guarantees can be made. Meal replacement products are not covered by insurance. Once the patient has bought these products we cannot return them B. Lifestyle management which includes several strategies as below 1. Eat a low carbohydrate good fat good protein diet. Eliminate refined carbohydrates from the diet. Continue blood sugar and sugared beverages. Eat local organic when possible. Cook your own meals. Read food labels. None about healthy snacks. Portion control and food with low glycemic index 2. Exercise regularly. Try to get at least 6000 steps a day. Use a predominant to track activity level. Consider using apps like ThisLife, [employer]kid[employer]al, lose it, stick as needed for self-monitoring and weight management. Consider group exercises. Consider hiring a personal banker. Regular exercise is saavedra to sustainable health and prevents as a buffer against weight regain 3. Sleep is most important for healing. Tried to sleep at least 8 hours a night. A good quality sleep needs a sleep ritual with ideal room temperature of around 68. It might help to take a shower and have no electronics in the room and sleep in a very dark room without artificial light. Start her sleep routine and get up early in the morning and go to bed on time 4. Make a social connection. Surround yourself with positive people with positive energy. Connect with friends and family. 5. Get into the habit of meditating and mindfulness while doing everything. 6. Go outside and connect with nature. C. Prescription medications Patient was educated on the use of prescription medications for medical weight loss. This is a growing list and includes phentermine, Topamax,Qsymia, contrave, belviq and saxenda. All prescription medications could have side effects including but not limited to kidney stones, seizure disorder cardiac arrhythmias heart attack pancreatitis etc. etc.. Patient was encouraged to read the prescription insert and have coaching with their pharmacist and make an informed decision about taking medication and know that these medications are being prescribed with good intentions and we do not know how a patient would react to her medication. Sudden medications are FDA approved for weight loss and there is also off label use depending on patient's inability to afford medications in an attempt to lose weight D. Behavioral counseling was done to establish a relationship between food and an mood. Patient was provided information about local counseling and psychiatry and Dr Smith at [facility]. We would like to cover regular topics and build on low glycemic eating exercise mindful eating, using yoga and meditation along with deep breathing and connecting with friends and family. E. MASS PAT reviewed, Patient's current medications were reviewed and opinion was given on medication that can cause weight gain and can be substituted F. Patient was assessed for risk with obesity including and not limiting to atherosclerosis heart disease stroke kidney disease, restrictive lung disease, irritable bowel syndrome and overall mortality. Risk of developing prediabetes diabetes and metabolic syndrome was discussed G. Therapeutic plan: We have decided to make therapeutic plan which would include choosing wisely on calories restricting portion getting active, tracking weight, getting good quality sleep and working on time management H. Patient will follow up in (4) weeks for weight management Of note, some information is being carried forward from prior records for informational purposes only and is being cited so that efficiency, safety and quality of the patient's care is not compromised This note was prepared using voice recognition software and direct typing Please excuse inadvertent puncher or typing errors, or uncorrected word substitutions Although every attempt has been made by the provider to proofread this document, occasional misspellings and typographical errors may still be present Due to the previous pandemic, and the use of personal protective equipment (PPE) This may decrease voice recognition accuracy Inadvertent puncher errors may occur 03/04/2024 Overweight (BMI 25.0-29.9) (ICD-10 - E66.3) #Weight Management 03/04/2024 _update labs Continue maintenance dosing, 2.4 mg weekly Discussed dual incretin Discussed importance of protein consumption for muscle maintenance, strength and resistance training as well as probiotics, B12 complex biotin , iron and other nutrients, To also help avoid telogen effluvium while on weight loss medications such as GLP-1 Total time spent today was 30 minutes of which greater than 50% was spent on coordinating and counseling Patient has been found to be overweight with a BMI of (25). Patient has overweight class per BMI standards We are a board certified obesity and weight management practice Patient has trialed behavioral modification, dietary restrictions and exercise for a minimum of 6 months The most recent [place] [employer] of clinical endocrinologists and [place] [employer] guidelines recommend patients who have overweight BMI or obesity BMI, who also have metabolic syndrome, prediabetes, HLD, and other comorbidities or at risk of developing type 2 diabetes should aim for a weight loss goal of at least 10% of the baseline body weight Patient counseled regarding effects of GLP/GIP-1 agonists, and other FDA approved wgt loss meds with regards to a multifactorial approach of weight loss as mentioned above and not solely appetite suppression. We have discussed the mechanism of GLP-1's/GIP, dual incretins, appetitite suppressants I think this would be fantastic option for her given her metabolic workup and body composition We have discussed the risks and benefits and side effects including/and not limited to Sarcopenia, intestinal obstruction, constipation, nausea, lethargy, headache Discussed importance of protein consumption for muscle maintenance as well as strength and resistance training ,probiotics, B12 complex biotin , iron and other nutrients, To help avoid telogen effluvium We have discussed the lifelong requirement of nutritional supplementation And adherence to an exercise regimen as well as importance of follow-up We did discuss the neurohormonal changes that are occurring with these medications and Need for long-term Continued usage The patient understands and agrees There is no history of medullary thyroid cancer or multiple endocrine neoplasia There is also no history of cardiovascular disease, hypertension, palpitations, or arrhythmias In the setting of potential stimulant/amphetami ne use such as phentermine We have also discussed risks and benefits, and the use of compounded medications to help offset the national shortages as well as financial implications vs trade name drugs Patient was reassured and welcomed to the practice. We discussed that we stress a hollistic medical approach with emphasis on lifestyle modification. Patient was informed that a healthy lifestyle with exercise and good eating habits can help reduce his risk of medical complications. He is explained that obesity increases his risk of diabetes, cardiovascular disease, or organ damage. We spent a lot of time discussing the relationship between food, exercise, sleep, mental health and obesity. Patient was counseled on the importance EATING local, organic food when possible. Patient was educated on clean 15 and dirty dozen. I provided information about reading books called The Food Rules by Pete Pearson and Eat Fat Get Lean by Dr Thuan Cedillo. Self education is important in the journey for weight management. Patient was offered diagnostic testing. We want to measure visceral adiposity, advanced body composition, adverse lipids, fatty acid balance, risk for heart disease and atherosclerosis, markers of inflammation and genetic susceptibility. Patient was counseled on weight management and was advised to lose weight using A. Meal Replacement Products We discussed the lifelong requirement of nutritional supplementation and adherence to an exercise regimen as well as importance of dietary follow-up Patient was educated on the replacement products called optifast. This is a good way of taking fixed amount of calories. It has been shown in studies to be ineffective weight management tool. We also recommend maintaining adequate protein intake and muscle composition, 1.5mg/kg This however has to be coupled with lifestyle intervention as well as laboratory data and EKG monitoring. It is impossible to know how a person will tolerate complete meal replacement. The side effects of meal replacement and weight loss could include syncopal attacks, dizziness, gallstones, potential cholecystectomy, possible heart attack and even . The benefits of meal replacement would be potential weight loss but no guarantees can be made. Meal replacement products are not covered by insurance. Once the patient has bought these products we cannot return them B. Lifestyle management which includes several strategies as below 1. Eat a low carbohydrate good fat good protein diet. Eliminate refined carbohydrates from the diet. Continue blood sugar and sugared beverages. Eat local organic when possible. Cook your own meals. Read food labels. None about healthy snacks. Portion control and food with low glycemic index 2. Exercise regularly. Try to get at least 6000 steps a day. Use a predominant to track activity level. Consider using apps like ThisLife, myfitnesspal, lose it, stick as needed for self-monitoring and weight management. Consider group exercises. Consider hiring a personal banker. Regular exercise is saavedra to sustainable health and prevents as a buffer against weight regain 3. Sleep is most important for healing. Tried to sleep at least 8 hours a night. A good quality sleep needs a sleep ritual with ideal room temperature of around 68. It might help to take a shower and have no electronics in the room and sleep in a very dark room without artificial light. Start her sleep routine and get up early in the morning and go to bed on time 4. Make a social connection. Surround yourself with positive people with positive energy. Connect with friends and family. 5. Get into the habit of meditating and mindfulness while doing everything. 6. Go outside and connect with nature. C. Prescription medications Patient was educated on the use of prescription medications for medical weight loss. This is a growing list and includes phentermine, Topamax,Qsymia, contrave, belviq and saxenda. All prescription medications could have side effects including but not limited to kidney stones, seizure disorder cardiac arrhythmias heart attack pancreatitis etc. etc.. Patient was encouraged to read the prescription insert and have coaching with their pharmacist and make an informed decision about taking medication and know that these medications are being prescribed with good intentions and we do not know how a patient would react to her medication. Sudden medications are FDA approved for weight loss and there is also off label use depending on patient's inability to afford medications in an attempt to lose weight D. Behavioral counseling was done to establish a relationship between food and an mood. Patient was provided information about local counseling and psychiatry and Dr Smith at [facility]. We would like to cover regular topics and build on low glycemic eating exercise mindful eating, using yoga and meditation along with deep breathing and connecting with friends and family. E. MASS PAT reviewed, Patient's current medications were reviewed and opinion was given on medication that can cause weight gain and can be substituted F. Patient was assessed for risk with obesity including and not limiting to atherosclerosis heart disease stroke kidney disease, restrictive lung disease, irritable bowel syndrome and overall mortality. Risk of developing prediabetes diabetes and metabolic syndrome was discussed G. Therapeutic plan: We have decided to make therapeutic plan which would include choosing wisely on calories restricting portion getting active, tracking weight, getting good quality sleep and working on time management H. Patient will follow up in (4) weeks for weight management Of note, some information is being carried forward from prior records for informational purposes only and is being cited so that efficiency, safety and quality of the patient's care is not compromised This note was prepared using voice recognition software and direct typing Please excuse inadvertent puncher or typing errors, or uncorrected word substitutions Although every attempt has been made by the provider to proofread this document, occasional misspellings and typographical errors may still be present Due to the previous pandemic, and the use of personal protective equipment (PPE) This may decrease voice recognition accuracy Inadvertent puncher errors may occur Plan Of Treatment Next Appt Details Provider Name:SHAHEEN MCKEON, 08/05/2025 08:15:00 AM, [address] [facility], [facility] [address], [place], [id number], History and Physical Notes * HPI (History of Present Illness) Category Sub-Category Detail Notes Category Not es Constitutional Patient here today for a weight management followup visit Patient seen and examined. Full past medical history, social history, family history, allergies and current medications were reviewed and updated. Body composition analysis reviewed today, as expected increased BMI, visceral adiposity, fat mass index, waist cirumference Good skeletal mass composition, Good water composition Caloric energy expenditure discussed. 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 Taking Ibuprofen, Acetaminophen, Firocet, Excedrin, amitriptyline. Discussed importance of protein consumption for muscle maintenance, strength and resistance training as well as probiotics, B12 complex biotin, iron and other nutrients, To also help avoid telogen effluvium while on weight loss medications such as GLP-1 03/04/2024, Weight , BMI 01/26/2024, Weight 153lbs , BMI 25 11/22/2023, Weight 154lbs, BMI 25.7 (-1lbs) 10/02/2023, Weight 155lbs , BMI 26, (+5lbs) 07/30/2023, Weight 150lbs , BMI 25 05/01/23: Weight 149lbs BMI 25 (-3lbs) 12/20/22: Weight 152 lbs, BMI 26 (-0bs) 10/04/22: Weight 152 lbs, BMI 26 (+4lbs) 08/22/22: Weight 148 lbs, BMI 25 (-6 lbs) 07/07/22: Weight 154 lbs, BMI 26 (-6lbs) 05/26/22: Weight 160 lbs, BMI, (-8lbs) 04/13/22: Weight 168 lbs, BMI 29 (-2 lbs) 02/27/22: Weight 170 lbs, BMI 29 (-11lbs) 01/10/2022: Weight 181 lbs, BMI 31 Injection day is Sunday. Patient referred to us from coworker/patient of ours for wgt mgt, PCP Johnna. 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 Metabolic workup: Comprehensive labs are reviewed There is no prediabetic state or hyperinsulinemia Thyroid function is normal Total cholesterol 250, LDL is 161, HDL 64 and triglycerides are 127 Other labs unremarkable Has not had an echocardiogram recently. Diet: minimizing her calorie intake, not calorie count approx 1500. Eats proteins Exercise: Walking at work, and chores. biking everyday Non-smoker. In reviewing her history she endorses a past history that includes tachycardia Presumably PSVT She has seen cardiology and has had echocardiogram which she tells me was unremarkable I asked her about a Holter monitor She was unsure I do not have access to these records Therefore I think stimulant use would likely be out of the question here Examination Category Sub-Category Detail Notes Category Not es General Examination GENERAL APPEARANCE: in no ac [place] distress, well developed, well nourished HEAD: normocephalic, atrau matic EYES: pupils equal, round, reactive to light and accommodation EARS: normal THROAT: clear NECK/THYROID: neck supple, full ra nge of motion, no cervical lymphadenopathy HEART: no murmurs, regular rate and rhythm, S1, S2 normal LUNGS: clear to auscultatio n bilaterally ABDOMEN: normal, bowel sounds present, soft, nontender, nondistended NEUROLOGIC: nonfocal, motor stre ngth normal upper and lower extremities, sensory exam intact SKIN: no suspicious lesion s, warm and dry EXTREMITIES: no clubbing, cyanosi s, or edema ORAL CAVITY: mucosa moist Progress Notes * Deepika HOWELLDOB: (39 yo F)Acc No.[id number]:03/04/2024 Patient: Deepika Rossi Provider: Noemy MCKEON NP :[id number] A ge:38 Y S ex:Female Date:03/04/2024 Address:[address] [place], [place] [id number] Subjective: * Chief Complaints: * HPI: C onstitutional: Patient here today for a weight management followup visit Patient seen and examined. Full past medical history, social history, family history, allergies and current medications were reviewed and updated. Body composition analysis reviewed today, as expected increased BMI, visceral adiposity, fat mass index, waist cirumference Good skeletal mass composition, Good water composition Caloric energy expenditure discussed. 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 Taking Ibuprofen, Acetaminophen, Firocet, Excedrin, amitriptyline. Discussed importance of protein consumption for muscle maintenance, strength and resistance training as well as probiotics, B12 complex biotin, iron and other nutrients, To also help avoid telogen effluvium while on weight loss medications such as GLP-1 03/04/2024, Weight , BMI 01/26/2024, Weight 153lbs , BMI 25 11/22/2023, Weight 154lbs, BMI 25.7 (-1lbs) 10/02/2023, Weight 155lbs , BMI 26, (+5lbs) 07/30/2023, Weight 150lbs , BMI 25 05/01/23: Weight 149lbs BMI 25 (-3lbs) 12/20/22: Weight 152 lbs, BMI 26 (-0bs) 10/04/22: Weight 152 lbs, BMI 26 (+4lbs) 08/22/22: Weight 148 lbs, BMI 25 (-6 lbs) 07/07/22: Weight 154 lbs, BMI 26 (-6lbs) 05/26/22: Weight 160 lbs, BMI, (-8lbs) 04/13/22: Weight 168 lbs, BMI 29 (-2 lbs) 02/27/22: Weight 170 lbs, BMI 29 (-11lbs) 01/10/2022: Weight 181 lbs, BMI 31 Injection day is Sunday. Patient referred to us from coworker/patient of ours for wgt mgt, PCP Johnna. 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 Metabolic workup: Comprehensive labs are reviewed There is no prediabetic state or hyperinsulinemia Thyroid function is normal Total cholesterol 250, LDL is 161, HDL 64 and triglycerides are 127 Other labs unremarkable Has not had an echocardiogram recently. Diet: minimizing her calorie intake, not calorie count approx 1500. Eats proteins Exercise: Walking at work, and chores. biking everyday Non-smoker. In reviewing her history she endorses a past history that includes tachycardia Presumably PSVT She has seen cardiology and has had echocardiogram which she tells me was unremarkable I asked her about a Holter monitor She was unsure I do not have access to these records Therefore I think stimulant use would likely be out of the question here. * ROS: R eview of systems otherwise negative unless stated in HPI. Objective: * Examination: G eneral Examination: GENERAL APPEARANCE: i n no acute distress, well developed, well nourished. HEAD: n ormocephalic, atraumatic. EYES: p upils equal, round, reactive to light and accommodation. EARS: n ormal. ORAL CAVITY: m uc[place] moist. THROAT: c lear. NECK/THYROID: n elisha supple, full range of motion, no cervical lymphadenopathy. SKIN: n o suspicious lesions, warm and dry. HEART: n o murmurs, regular rate and rhythm, S1, S2 normal.? LUNGS: c lear to auscultation bilaterally. ABDOMEN: n ormal, bowel sounds present, soft, nontender, nondistended. EXTREMITIES: n o clubbing, cyanosis, or edema. NEUROLOGIC: n onfocal, motor strength normal upper and lower extremities, sensory exam intact. Assessment: * Assessment: 1. O verweight (BMI 25.0-29.9) - E66.3 (Primary) 2 . B NJ 26.0-26.9,adult - Z68.26 3 . D ietary counseling and surveillance - Z71.3 4 .?Hyperlipidemia, unspecified hyperlipidemia type - E78.5 5 . M igraine with aura and without status migrainosus, not intractable - G43.109 #Weight Management 03/04/2024 _update labs Continue maintenance dosing, 2.4 mg weekly Discussed dual incretin Discussed importance of protein consumption for muscle maintenance, strength and resistance training as well as probiotics, B12 complex biotin , iron and other nutrients, To also help avoid telogen effluvium while on weight loss medications such as GLP-1 Total time spent today was 30 minutes of which greater than 50% was spent on coordinating and counseling Patient has been found to be overweight with a BMI of (25). Patient has overweight class per BMI standards We are a board certified obesity and weight management practice Patient has trialed behavioral modification, dietary restrictions and exercise for a minimum of 6 months The most recent [place] [employer] of clinical endocrinologists and [place] [employer]in[employer] guidelines recommend patients who have overweight BMI or obesity BMI, who also have metabolic syndrome, prediabetes, HLD, and other comorbidities or at risk of developing type 2 diabetes should aim for a weight loss goal of at least 10% of the baseline body weight Patient counseled regarding effects of GLP/GIP-1 agonists, and other FDA approved wgt loss meds with regards to a multifactorial approach of weight loss as mentioned above and not solely appetite suppression. We have discussed the mechanism of GLP-1's/GIP, dual incretins, appetitite suppressants I think this would be fantastic option for her given her metabolic workup and body composition We have discussed the risks and benefits and side effects including/and not limited to Sarcopenia, intestinal obstruction, constipation, nausea, lethargy, headache Discussed importance of protein consumption for muscle maintenance as well as strength and resistance training ,probiotics, B12 complex biotin , iron and other nutrients, To help avoid telogen effluvium We have discussed the lifelong requirement of nutritional supplementation And adherence to an exercise regimen as well as importance of follow-up We did discuss the neurohormonal changes that are occurring with these medications and Need for long-term Continued usage The patient understands and agrees There is no history of medullary thyroid cancer or multiple endocrine neoplasia There is also no history of cardiovascular disease, hypertension, palpitations, or arrhythmias In the setting of potential stimulant/amphetamine use such as phentermine We have also discussed risks and benefits, and the use of compounded medications to help offset the national shortages as well as financial implications vs trade name drugs Patient was reassured and welcomed to the practice. We discussed that we stress a hollistic medical approach with emphasis on lifestyle modification. Patient was informed that a healthy lifestyle with exercise and good eating habits can help reduce his risk of medical complications. He is explained that obesity increases his risk of diabetes, cardiovascular disease, or organ damage. We spent a lot of time discussing the relationship between food, exercise, sleep, mental health and obesity. Patient was counseled on the importance EATING local, organic food when possible. Patient was educated on clean 15 and dirty dozen. I provided information about reading books called The Food Rules by Pete Pearson and Eat Fat Get Lean by Dr Thuan Cedillo. Self education is important in the journey for weight management. Patient was offered diagnostic testing. We want to measure visceral adiposity, advanced body composition, adverse lipids, fatty acid balance, risk for heart disease and atherosclerosis, markers of inflammation and genetic susceptibility. Patient was counseled on weight management and was advised to lose weight using A. Meal Replacement Products We discussed the lifelong requirement of nutritional supplementation and adherence to an exercise regimen as well as importance of dietary follow-up Patient was educated on the replacement products called optifast. This is a good way of taking fixed amount of calories. It has been shown in studies to be ineffective weight management tool. We also recommend maintaining adequate protein intake and muscle composition, 1.5mg/kg This however has to be coupled with lifestyle intervention as well as laboratory data and EKG monitoring. It is impossible to know how a person will tolerate complete meal replacement. The side effects of meal replacement and weight loss could include syncopal attacks, dizziness, gallstones, potential cholecystectomy, possible heart attack and even . The benefits of meal replacement would be potential weight loss but no guarantees can be made. Meal replacement products are not covered by insurance. Once the patient has bought these products we cannot return them B. Lifestyle management which includes several strategies as below 1. Eat a low carbohydrate good fat good protein diet. Eliminate refined carbohydrates from the diet. Continue blood sugar and sugared beverages. Eat local organic when possible. Cook your own meals. Read food labels. None about healthy snacks. Portion control and food with low glycemic index 2. Exercise regularly. Try to get at least 6000 steps a day. Use a predominant to track activity level. Consider using apps like 7 mionute excercise, myfitnesspal, lose it, stick as needed for self-monitoring and weight management. Consider group exercises. Consider hiring a personal banker. Regular exercise is saavedra to sustainable health and prevents as a buffer against weight regain 3. Sleep is most important for healing. Tried to sleep at least 8 hours a night. A good quality sleep needs a sleep ritual with ideal room temperature of around 68. It might help to take a shower and have no electronics in the room and sleep in a very dark room without artificial light. Start her sleep routine and get up early in the morning and go to bed on time 4. Make a social connection. Surround yourself with positive people with positive energy. Connect with friends and family. 5. Get into the habit of meditating and mindfulness while doing everything. 6. Go outside and connect with nature. C. Prescription medications Patient was educated on the use of prescription medications for medical weight loss. This is a growing list and includes phentermine, Topamax,Qsymia, contrave, belviq and saxenda. All prescription medications could have side effects including but not limited to kidney stones, seizure disorder cardiac arrhythmias heart attack pancreatitis etc. etc.. Patient was encouraged to read the prescription insert and have coaching with their pharmacist and make an informed decision about taking medication and know that these medications are being prescribed with good intentions and we do not know how a patient would react to her medication. Sudden medications are FDA approved for weight loss and there is also off label use depending on patient's inability to afford medications in an attempt to lose weight D. Behavioral counseling was done to establish a relationship between food and an mood. Patient was provided information about local counseling and psychiatry and Dr Smith at [facility]. We would like to cover regular topics and build on low glycemic eating exercise mindful eating, using yoga and meditation along with deep breathing and connecting with friends and family. E. MASS PAT reviewed, Patient's current medications were reviewed and opinion was given on medication that can cause weight gain and can be substituted F. Patient was assessed for risk with obesity including and not limiting to atherosclerosis heart disease stroke kidney disease, restrictive lung disease, irritable bowel syndrome and overall mortality. Risk of developing prediabetes diabetes and metabolic syndrome was discussed G. Therapeutic plan: We have decided to make therapeutic plan which would include choosing wisely on calories restricting portion getting active, tracking weight, getting good quality sleep and working on time management H. Patient will follow up in (4) weeks for weight management Of note, some information is being carried forward from prior records for informational purposes only and is being cited so that efficiency, safety and quality of the patient's care is not compromised This note was prepared using voice recognition software and direct typing Please excuse inadvertent puncher or typing errors, or uncorrected word substitutions Although every attempt has been made by the provider to proofread this document, occasional misspellings and typographical errors may still be present Due to the previous pandemic, and the use of personal protective equipment (PPE) This may decrease voice recognition accuracy Inadvertent puncher errors may occur. * Electronic signature of KAMILA MCKEON on 07/07/2025 at 07:56 AM EST Sign off status: Pending * Provider: Noemy MCKEON NP Date: 0 03/04/2024 Generated for Murphy blunt/Lulú/Oralia on: 1 09/07/2024 07:56 AM EST
--- OUTSIDE RECORDS SUMMARY | 2025-07-07 07:56 | XMS_ITS | Clinical Summary ---
Author Organization [address] Address [address] [place] [phone] Phone Care Team Providers Care Habilitation Training Specialist Name Role Phone Alex Oropeza MD Primary Care Provider [phone] Surgical History Surgery Date Site/Laterality Comments WRIST SURGERY Left PROCEDURE: HISTORICAL WRIST SURGERY; COMMENT: ganglion OTHER SURGICAL HISTORY PROCEDURE: ---- OTHER ----; COMMENT: cone bx cervical OTHER SURGICAL HISTORY PROCEDURE: ---- OTHER ----; COMMENT: IVF Medical History Medical History Date Comments History of concussion 02/19/2016 DX:History of concussion; COMMENT: 2010 GERD (gastroesophageal reflux disease) 02/19/2016 DX:GERD (gastroesophageal reflux disease) Allergic rhinitis 02/19/2016 DX:Allergic rh initis Migraine 02/19/2016 DX:Migraine Family History Medical History Relation Name Comments Colon cancer Aunt Other: hyperlipidemia Father Lung cancer Maternal Grandfather Coronary artery disease Maternal Grandmother Diabetes Paternal Grandmother Hypertension Paternal Grandmother Lung cancer Uncle possible Other: oral CA Uncle Relation Name Status Comments Aunt Father Maternal Grandfather Maternal Grandmother Paternal Grandmother Uncle Social History Tobacco Use Types Packs/Day Years Used Date Smoking Tobacco: Never Smokeless Tobacco: Never Alcohol Use Standard Drinks/Week Comments Yes 0 (1 standard drink = 0.6 oz pur e alcohol) Comments Unknown Sex and Gender Information Value Date Recorded Sex Assigned at Not on file Legal Sex Female 7:22 AM EST Gender Identity Not on file Sexual Orientation Not on file Last Filed Vital Signs Vital Sign Reading Time Taken Comments Blood Pressure 118/80 09/27/2021 4:46 PM EDT Pulse 88 09/27/2021 4:23 PM EDT Temperature - - Respiratory Rate - - Oxygen Saturation - - Inhaled Oxygen Concentration - - Weight 79.4 kg (175 lb) 09/27/2021 4:23 PM EDT Height - - Body Mass Index - - Plan of Treatment Health Maintenance Due Date Last Done Comments Hepatitis B Vaccines (1 of 3 - 19+ 3-dose series) 2005 Cervical Cancer Screening: P ap Smear 10/11/2007 HPV Vaccines (1 - 3-dose SCD M series) 2013 Depression Screening 07/16/2024 COVID-19 Vaccine (4 - 2024-2 6 season) 2025 08/23/2021, 11/28/2020, 11/07/2020 Influenza Vaccine (#1) 2025 04/26/2020 HIV Screening 05/01/2025 Hepatitis C Screening 05/01/2025 Social Influencers of Health Screening 05/01/2025 DTaP,Tdap,and Td Vaccines (3 - Td or Tdap) 04/13/2027 04/13/2017, 11/08/2010 Cholesterol Screening (Lipid Panel) 05/01/2030 05/01/2025 RSV Immunization Adult Patients (1 - 1-dose 75+ series) 2061 HIB Vaccines Aged Out No longer eligi ble based on patient's age to complete this topic Hepatitis A Vaccines Aged Out No long er eligible based on patient's age to complete this topic IPV Vaccines Aged Out No longer eligi ble based on patient's age to complete this topic MMR Vaccines Aged Out No longer eligi ble based on patient's age to complete this topic Meningococcal ACWY Vaccine Aged Out N o longer eligible based on patient's age to complete this topic Meningococcal B Vaccine Aged Out No l onger eligible based on patient's age to complete this topic Pneumococcal Vaccine: Pediatrics (0 to 5 Years) and At-Risk Patients (6 to 49 Years) Aged Out No longer eligible b ased on patient's age to complete this topic RSV Immunization Patients Under 20 months Aged Out No longer eligible b ased on patient's age to complete this topic Varicella Vaccines Aged Out No longer eligible based on patient's age to complete this topic Procedures Procedure Name Priority Date/Time Associated Diagnosis Comments CBC WITH AUTO DIFFERENTIAL Routine 05/01/2025 7:50 AM EDT Routine general medical examination at a health care facility Screening for lipoid disorders Screening for diabetes mellitus Avitaminosis D Screening for thyroid disorder Vitamin B12 deficiency anemia VITAMIN B12 Routine 05/01/2025 7:50 AM EDT Routine general medical examination at a health care facility Screening for lipoid disorders Screening for diabetes mellitus Avitaminosis D Screening for thyroid disorder Vitamin B12 deficiency anemia THYROID STIMULATING HORMONE Routine 05/01/2025 7:50 AM EDT Routine general medical examination at a health care facility Screening for lipoid disorders Screening for diabetes mellitus Avitaminosis D Screening for thyroid disorder Vitamin B12 deficiency anemia VITAMIN D 25 HYDROXY Routine 05/01/2025 7:50 AM EDT Routine general medical examination at a health care facility Screening for lipoid disorders Screening for diabetes mellitus Avitaminosis D Screening for thyroid disorder Vitamin B12 deficiency anemia HEMOGLOBIN A1C Routine 05/01/2025 7:50 AM EDT Routine general medical examination at a health care facility Screening for lipoid disorders Screening for diabetes mellitus Avitaminosis D Screening for thyroid disorder Vitamin B12 deficiency anemia LIPID PANEL WITH REFLEX TO DIRECT LDL Routine 05/01/2025 7:50 AM EDT Routine general medical examination at a health care facility Screening for lipoid disorders Screening for diabetes mellitus Avitaminosis D Screening for thyroid disorder Vitamin B12 deficiency anemia COMPREHENSIVE METABOLIC PANEL Routine 05/01/2025 7:50 AM EDT Routine general medical examination at a health care facility Screening for lipoid disorders Screening for diabetes mellitus Avitaminosis D Screening for thyroid disorder Vitamin B12 deficiency anemia CBC AND DIFFERENTIAL Routine 05/01/2025 7:50 AM EDT Routine general medical examination at a health care facility Screening for lipoid disorders Screening for diabetes mellitus Avitaminosis D Screening for thyroid disorder Vitamin B12 deficiency anemia from Last 3 Months Results * (ABNORMAL) Lipid panel with reflex to direct LDL (05/01/2025 7:50 AM EDT) [facility] Cholesterol 182 0 - 200 mg/dL LAB CHEMISTRY METHOD 05/01/2025 9:14 AM EDT [facility] Triglycerides 81 0 - 150 mg/dL LAB CHEMISTRY METHOD 05/01/2025 9:14 AM EDT [facility] HDL 63 >=40 mg/dL LAB CHEMISTRY METHOD 05/01/2025 9:14 AM T [facility] LDL Calculated 103(H) 0 - 100 mg/dL LAB CHEMISTRY METHOD 05/01/2025 9:14 AM EDT [facility] Comment:Estimated LDL Calcul ated using equation: Total cholesterol - HDL cholesterol - (Triglycerides/5) VLDL Cholesterol Tulio 16.2 mg/dL LAB CHEMISTRY METHOD 05/01/2025 9:14 AM EDT [facility] Non HDL Chol. (LDL+VLDL) 119 <145 mg/dL LAB CHEMISTRY METHOD 05/01/2025 9:[address] [facility] Chol/HDL Ratio 2.9 0.0 - 4.4 LAB CHEMISTRY METHOD 05/01/2025 9:14 AM T [facility] Blood Venous blood specimen / Unknown Venipuncture / Unknown 05/01/2025 7:50 AM EDT 05/01/2025 8:17 AM EDT us [address] CHALK MACHINE OPERATOR LAB BLOOD ORDERABLES Final Re sult [facility] [address] [place] [address], * (ABNORMAL) CBC auto differential (05/01/2025 7:50 AM EDT) WBC 9.1 4.8 - 10.8 K/[facility] LAB HEMETOLOGY METHOD 05/01/2025 8:31 AM EDT [facility] RBC 4.20 3.80 - 4.80 M/[facility] LAB HEMETOLOGY METHOD 05/01/2025 8:31 AM EDT [facility] Hemoglobin 11.7 11.5 - 16.0 g/dL LAB HEMETOLOGY METHOD 05/01/2025 8:31 AM T [facility] Hematocrit 35.6 35.0 - 47.0 % LAB HEMETOLOGY METHOD 05/01/2025 8:[address] [facility] MCV 85.8 79.0 - 98.0 FL LAB HEMETOLOGY METHOD 05/01/2025 8:[address] [facility] MCH 28.2 27.0 - 32.0 pcg LAB HEMETOLOGY METHOD 05/01/2025 8:[address] [facility] MCHC 32.9 32.0 - 37.0 g/dL LAB HEMETOLOGY METHOD 05/01/2025 8:[address] [facility] RDW 12.8 11.0 - 15.0 % LAB HEMETOLOGY METHOD 05/01/2025 8:[address] [facility] Platelets 276 130 - 400 K/mcL LAB HEMETOLOGY METHOD 05/01/2025 8:[address] [facility] MPV 11.4(H) 7.0 - 11.0 FL LAB HEMETOLOGY METHOD 05/01/2025 8:[address] [facility] NRBC 0.0 <1.0 % LAB HEMETOLOGY METHOD 05/01/2025 8:[address] [facility] NRBC Absolute 0.00 <0.10 K/mcL LAB HEMETOLOGY METHOD 05/01/2025 8:[address] [facility] Neutrophils Relative 55.6 % LAB HEMETOLOGY METHOD 05/01/2025 8:[address] [facility] Lymphocytes Relative 31.9 % LAB HEMETOLOGY METHOD 05/01/2025 8:[address] [facility] Monocytes Relative 7.3 % LAB HEMETOLOGY METHOD 05/01/2025 8:31 AM EDT [facility] Eosinophils Relative 3.7 % LAB HEMETOLOGY METHOD 05/01/2025 8:31 AM EDT [facility] Basophils Relative 1.1 % LAB HEMETOLOGY METHOD 05/01/2025 8:31 AM EDT [facility] Immature Granulocytes Relative 0.4 % LAB HEMETOLOGY METHOD 05/01/2025 8:31 AM EDT [facility] Neutrophils Absolute 5.05 1.50 - 7.00 K/mcL LAB HEMETOLOGY METHOD 05/01/2025 8:31 AM EDT [facility] Lymphocytes Absolute 2.90 1.00 - 5.00 K/mcL LAB HEMETOLOGY METHOD 05/01/2025 8:31 AM EDT [facility] Monocytes Absolute 0.66 0.20 - 1.00 K/mcL LAB HEMETOLOGY METHOD 05/01/2025 8:31 AM EDT [facility] Eosinophils Absolute 0.34 0.00 - 0.50 K/mcL LAB HEMETOLOGY METHOD 05/01/2025 8:31 AM EDT [facility] Basophils Absolute 0.10 0.00 - 0.20 K/mcL LAB HEMETOLOGY METHOD 05/01/2025 8:31 AM EDT [facility] Immature Granulocytes Absolute 0.04(H) 0.00 - 0.03 K/mcL LAB HEMETOLOGY METHOD 05/01/2025 8:31 AM EDT [facility] Blood Venous blood specimen / Unknown Venipuncture / Unknown 05/01/2025 7:50 AM EDT 05/01/2025 8:18 [address] EDT us [address] NP LAB BLOOD ORDERABLES Final Re sult [facility] [address] [place] [address], * Vitamin D 25 hydroxy (05/01/2025 7:50 AM EDT) [facility] Vit D, 25-Hydroxy 31.8 30.0 - 80.0 ng/mL LAB CHEMISTRY METHOD 05/01/2025 9:55 AM EDT [facility] Blood Venous blood specimen / Unknown Venipuncture / Unknown 05/01/2025 7:50 AM EDT 05/01/2025 8:[address] CHALK MACHINE OPERATOR LAB BLOOD ORDERABLES Final Re sult [facility] [address] [place] [address], [place] [phone] * Thyroid stimulating hormone (05/01/2025 7:50 AM EDT) [facility] TSH 1.88 0.40 - 4.00 mcIU/mL LAB CHEMISTRY METHOD 05/01/2025 9:56 AM EDT [facility] Blood Venous blood specimen / Unknown Venipuncture / Unknown 05/01/2025 7:50 AM EDT 05/01/2025 8:17 AM EDT us [address] CHALK MACHINE OPERATOR LAB BLOOD ORDERABLES Final Re sult [facility] [address] [place] [address], [place] [phone] * Hemoglobin A1c (05/01/2025 7:50 AM EDT) [facility] Hemoglobin A1C 5.3 <6.5 % LAB CHEMISTRY METHOD 05/01/2025 10:05 AM EDT [facility] Mean Bld Glu Estim. 105 mg/dL LAB CHEMISTRY METHOD 05/01/2025 10:05 AM EDT [facility] Blood Venous blood specimen / Unknown Venipuncture / Unknown 05/01/2025 7:50 AM EDT 05/01/2025 8:[address] CHALK MACHINE OPERATOR LAB BLOOD ORDERABLES Final Re sult Performing Organization Address [facility]/ZIP Co de Phone Number [facility] [address] [place] [address], [place] [phone] * Vitamin B12 (05/01/2025 7:50 AM EDT) [facility] Vitamin B-12 436 250 - 900 pcg/mL LAB CHEMISTRY METHOD 05/01/2025 9:14 AM EDT [facility] Blood Venous blood specimen / Unknown Venipuncture / Unknown 05/01/2025 7:50 AM EDT 05/01/2025 8:[address] CHALK MACHINE OPERATOR LAB BLOOD ORDERABLES Final Re sult Performing Organization Address [facility]/ZIP Co de Phone Number [facility] [address] [place] [address], [place] [phone] * Comprehensive metabolic panel (05/01/2025 7:50 AM EDT) [facility] Sodium 137 133 - 145 mmol/L LAB CHEMISTRY METHOD 05/01/2025 9:14 AM EDT [facility] Potassium 3.9 3.5 - 5.5 mmol/L LAB CHEMISTRY METHOD 05/01/2025 9:14 AM EDT [facility] Chloride 105 96 - 110 mmol/L LAB CHEMISTRY METHOD 05/01/2025 9:14 AM EDT [facility] CO2 26 21 - 32 mmol/L LAB CHEMISTRY METHOD 05/01/2025 9:14 AM EDT [facility] Anion Gap 6 3 - 11 LAB CHEMISTRY METHOD 05/01/2025 9:14 AM EDT [facility] Glucose 87 70 - 100 mg/dL LAB CHEMISTRY METHOD 05/01/2025 9:[address] [facility] BUN 11 5 - 25 mg/dL LAB CHEMISTRY METHOD 05/01/2025 9:[address] [facility] Creatinine 0.93 0.50 - 1.10 mg/dL LAB CHEMISTRY METHOD 05/01/2025 9:[address] [facility] eGFR 81 >=60 mL/min/1. 73m2 LAB CHEMISTRY METHOD 05/01/2025 9:[address] [facility] Comment:Calculation based on the Chronic Kidney Disease Epidemiology Collaboration (CKD-EPI) equation refit without adjustment for race. BUN/Creatinine Ratio 11.8 LAB CHEMISTRY METHOD 05/01/2025 9:[address] [facility] Calcium 9.1 8.5 - 10.5 mg/dL LAB CHEMISTRY METHOD 05/01/2025 9:[address] [facility] AST (SGOT) 14 10 - 42 unit/L LAB CHEMISTRY METHOD 05/01/2025 9:[address] [facility] ALT (SGPT) 15 10 - 60 unit/L LAB CHEMISTRY METHOD 05/01/2025 9:[address] [facility] Alkaline Phosphatase 57 42 - 121 unit/L LAB CHEMISTRY METHOD 05/01/2025 9:[address] [facility] Total Protein 6.7 6.0 - 8.0 g/dL LAB CHEMISTRY METHOD 05/01/2025 9:[address] [facility] Albumin 3.8 3.2 - 5.0 g/dL LAB CHEMISTRY METHOD 05/01/2025 9:[address] [facility] Total Bilirubin 0.4 0.0 - 1.4 mg/dL LAB CHEMISTRY METHOD 05/01/2025 9:[address] [facility] Blood Venous blood specimen / Unknown Venipuncture / Unknown 05/01/2025 7:50 AM EDT 05/01/2025 8:17 [address] EDT us [address] CHALK MACHINE OPERATOR LAB BLOOD ORDERABLES Final Re sult [facility] ([facility] [address] [place] [address], [place] [phone] from Last 3 Months Insurance [employer] Care Teams Habilitation Training Specialist Relationship Specialty Start Date End Date Alex Oropeza MD PCP - General Internal Medicine 08/25/15
--- OUTSIDE RECORDS SUMMARY | 2025-07-07 07:56 | XMS_ITS | Clinical Summary ---
Author Organization [facility]ly [facility] Address [address] [place] [address] Care Team Providers Care Barrel Centerer Name Role Phone Alex Oropeza MD Primary Care Provider Allergies Active Allergy Reactions Criticality Noted Date Comments Penicillins Rash/Dermatitis Low 01/26/2017 Medications Prenat-Fe Okcl-Tyrovih-WP -DHA (VITAFOL ULTRA) 29-0.6-0.4-200 MG Cap Take 1 capsule by mouth. 11/04/2016 Active acetaminophen (TYLENOL) 500 MG tablet Take 500 mg by mouth 4 times daily (every 6 hours) as needed for mild pain. Active Acetaminophen-C affeine (EXCEDRIN TENSION HEADACHE PO) Take by mouth. Active Active Problems Problem Noted Date Diagnosed Date Neuralgia 02/14/2017 Migraine without aura, intra ctable, without status migrainosus 01/26/2017 Migraine without aura, intractable, with status migrainosus 01/26/2017 Tinnitus of right ear 01/26/2017 Family History Medical History Relation Name Comments Hypertension Father Hyperlipidemia Mother Stroke Paternal Grandmother Relation Name Status Comments Brother Alive Father Alive Mother Alive Paternal Grandmother Social History Tobacco Use Types Packs/Day Years Used Date Smoking Tobacco: Never Smokeless Tobacco: Never Tobacco Cessation:Counseling Given: No Alcohol Use Standard Drinks/Week Comments No 0 (1 standard drink = 0.6 oz pur e alcohol) Comments Unknown Sex and Gender Information Value Date Recorded Sex Assigned at Not on file Legal Sex Female 2:03 PM EDT Gender Identity Not on file Sexual Orientation Not on file Last Filed Vital Signs Vital Sign Reading Time Taken Comments Blood Pressure 116/82 03/16/2017 10:59 AM EDT Pulse 96 03/16/2017 10:59 AM EDT Temperature - - Respiratory Rate - - Oxygen Saturation - - Inhaled Oxygen Concentration - - Weight 86.3 kg (190 lb 3.2 oz) 03/16/2017 10:59 AM EDT Height 165.1 cm (5' 5 ) 03/16/2017 10:59 AM EDT Body Mass Index 31.65 03/16/2017 10:59 AM EDT Plan of Treatment Health Maintenance Due Date Last Done Comments Hepatitis C Virus Screening 1986 HIV Screening 10/11/1999 DTaP/Tdap/Td Vaccines (1 - Tdap) 2005 Hepatitis B Vaccines (1 of 3 - 19+ 3-dose series) 2005 Pap Smear (Ages 21-65) 10/11/2007 Influenza Vaccine 02/13/2025 COVID-19 Vaccine (1 - 2024-2 6 season) 2025 HPV Vaccines (No Doses Required) Completed Pneumococcal Vaccine: Pediat pauline (0-5 Years) and At-Risk Patients (6 to 49 Years) Aged Out No longer eligible b ased on patient's age to complete this topic [facility] Care Teams Barrel Centerer Relationship Specialty Start Date End Date Alex Oropeza MD [address] [place] [id number] PCP - General 12/28/16
--- OUTSIDE RECORDS SUMMARY | 2025-07-07 07:56 | XMS_ITS | Encounter Summary ---
Author Organization [facility] Address [address] [place] [address] Care Team Providers Care Freight Tallier Name Role Phone Alex Oropeza MD Primary Care Provider Encounter Details Date Type Department Care Team (Late st Contact Info) Description 02/14/2017 Scanned Document [facility] [address] [place] [address] Ellen Callejas PA [address] [place] [address] Social History Tobacco Use Types Packs/Day Years Used Date Smoking Tobacco: Never Alcohol Use Standard Drinks/Week Comments No 0 (1 standard drink = 0.6 oz pur e alcohol) Comments Yes Sex and Gender Information Value Date Recorded Sex Assigned at Not on file Legal Sex Female 2:03 PM EDT Gender Identity Not on file Sexual Orientation Not on file documented as of this encounter Plan of Treatment Not on file documented as of this encounter Visit Diagnoses Not on filedocumented in this encounter Care Teams Freight Tallier Relationship Specialty Start Date End Date Alex Oropeza MD [address] [place] [id number] PCP - General 12/28/16 documented as of this encounter
--- OUTSIDE RECORDS SUMMARY | 2025-07-07 07:56 | XMS_ITS | Patient Health Record ---
Author Organization [facility] [address] Address [address] [place] [place] [address] Care Team Providers Care Baby Doctor Name Role Phone SHAHEEN MCKEON Unavailable [phone] LORE SIMON Unavailable [phone] Allergies Allergen (clinical drug ingredient) Drug/Non Drug Allergy documented on EMR Reaction Allergy Type Onset Date Status lactose Lactose (Intolerance) Unknown Drug Allergy Active Penicillin rash Drug Allergy Active Results Component Value Reference Range Flag Notes VITAMIN D 25 HYDROXY Reviewed date:05/01/2025 10:04:54 AM Interpretation: Performing Lab: Notes/Report: Vit D, 25-Hydroxy 31.8 30.0-80.0 ng/mL THYROID STIMULATING HORMONE Reviewed date:05/01/2025 10:04:54 AM Interpretation: Performing Lab: Notes/Report: TSH 1.88 0.40-4.00 mcIU/mL HEMOGLOBIN A1C Reviewed date:05/01/2025 10:54:59 AM Interpretation: Performing Lab: Notes/Report: Hemoglobin A1C 5.3 <6.5 % Mean Bld Glu Estim. 105 LIPID PANEL WITH REFLEX TO D IRECT LDL Reviewed date:05/01/2025 09:47:22 AM Interpretation: Performing Lab: Notes/Report: Cholesterol 182 0-200 mg/dL Triglycerides 81 0-150 mg/dL HDL 63 >=40 mg/dL LDL Calculated 103 0-100 mg/dL H Estimated LDL Calculated using equation: Total cholesterol - HDL cholesterol - (Triglycerides/5) VLDL Cholesterol Tulio 16.2 Non HDL Chol. (LDL+VLDL) 119 <145 mg/dL Chol/HDL Ratio 2.9 0.0-4.4 COMPREHENSIVE METABOLIC PANE L Reviewed date:05/01/2025 09:47:22 AM Interpretation: Performing Lab: Notes/Report: Sodium 137 133-145 mmol/L Potassium 3.9 3.5-5.5 mmol/L Chloride 105 96-110 mmol/L CO2 26 21-32 mmol/L Anion Gap 6 3-11 Glucose 87 70-100 mg/dL BUN 11 5-25 mg/dL Creatinine 0.93 0.50-1.10 mg/dL eGFR 81 >=60 mL/min/1.73m2 Calcul ation based on the Chronic Kidney Disease Epidemiology Collaboration (CKD-EPI) equation refit without adjustment for race. BUN/Creatinine Ratio 11.8 Calcium 9.1 8.5-10.5 mg/dL AST (SGOT) 14 10-42 unit/L ALT (SGPT) 15 10-60 unit/L Alkaline Phosphatase 57 42-121 unit/L Total Protein 6.7 6.0-8.0 g/dL Albumin 3.8 3.2-5.0 g/dL Total Bilirubin 0.4 0.0-1.4 mg/dL VITAMIN B12 Reviewed date:05/01/2025 09:47:22 AM Interpretation: Performing Lab: Notes/Report: Vitamin B-12 436 250-900 pcg/mL CBC WITH AUTO DIFFERENTIAL Reviewed date:05/01/2025 08:46:59 AM Interpretation: Performing Lab: Notes/Report: WBC 9.1 4.8-10.8 K/mcL RBC 4.20 3.80-4.80 M/mcL Hemoglobin 11.7 11.5-16.0 g/dL Hematocrit 35.6 35.0-47.0 % MCV 85.8 79.0-98.0 FL MCH 28.2 27.0-32.0 pcg MCHC 32.9 32.0-37.0 g/dL RDW 12.8 11.0-15.0 % Platelets 276 130-400 K/mcL MPV 11.4 7.0-11.0 FL H NRBC 0.0 <1.0 % NRBC Absolute 0.00 <0.10 K/mcL Neutrophils Relative 55.6 Lymphocytes Relative 31.9 Monocytes Relative 7.3 Eosinophils Relative 3.7 Basophils Relative 1.1 Immature Granulocytes Relative 0.4 Neutrophils Absolute 5.05 1.50-7.00 K/mcL Lymphocytes Absolute 2.90 1.00-5.00 K/mcL Monocytes Absolute 0.66 0.20-1.00 K/mcL Eosinophils Absolute 0.34 0.00-0.50 K/mcL Basophils Absolute 0.10 0.00-0.20 K/mcL Immature Granulocytes Absolute 0.04 0.00-0.03 K/mcL H Reason For Referral No Information Medications Medication SIG (Take, Route, Frequency, Duration) Notes Start Date End Date Status Amitriptyline HCl 50 MG Tablet 1 tablet at bedtime Orally Once a day Active Zepbound 2.5 MG/0.5ML Solution Auto-injector 2.5 mg weekly Subcutaneous Weekly; Duration: 30 days Not-Taking Mounjaro 7.5 MG/0.5ML Solution Auto-injector 7.5mg Subcutaneous weekly; Duration: 30 days 06/18/2025 Active Mounjaro 5 MG/0.5ML Solution Auto-injector 5mg Subcutaneous weekly; Duration: 28 days 03/10/2025 Not-Taking Zepbound 5 MG/0.5ML Solution Auto-injector INJECT 5MG (0.5ML) UNDER THE SKIN ONCE A WEEK; Duration: 28 Not-Taking Ondansetron 4 MG Tablet Disintegrating 1 tablet on the tongue and allow to dissolve prn nausea/vomiting Orally twice day; Duration: 30 days Not-Taking Social History Tobacco Use: Social History Observation Description Date Details (start date - stop date) Never Smoker NA - NA Social History Drugs/Alcohol: Social Info Question Answer Notes Alcohol Screen (Audit-C) Did you have a drink containing alcohol in the past year? Yes How often did you have a drink containing alcohol in the past year? 2 to 4 times a month (2 points) Points 2 Interpretation Negative Drugs Have you used drugs other than those for medical reasons in the past 12 months? No Tobacco Use: Social Info Question Answer Notes Tobacco Use/Smoking Are you a nonsmoker Additional Details Category Social Info Options Details Drugs/Alcohol: Do you smoke marijuana? De nies Do you drink alcohol? No Problems Problem Type SNOMED Code ICD Code Onset Dates Problem Status W/U Status Risk Notes Problem Vitamin D deficiency (41896051) Vitamin D deficiency, unspecified (E55.9) Active confirmed Problem Obesity due to excess calories (011894364) Other obesity due to excess calories (E66.09) Active confirmed Problem Overweight (729238587) Overweight (E66.3) Active confirmed Problem Adult health examination (054080842) Encounter for general adult medical examination without abnormal findings (Z00.00) Active confirmed Problem Hyperlipidaemia (60143788) Hyperlipidemia, unspecified hyperlipidemia type (E78.5) Active confirmed Problem Hypothyroidism (99283562) Hypothyroidism, unspecified type (E03.9) Active confirmed Problem Body mass index 30.00 to 34.99 (676762232072534) Body mass index [BMI] 31.0-31.9, adult (Z68.31) Active confirmed Problem Migraine with aura (4198523) Migraine with aura and without status migrainosus, not intractable (G43.109) Active confirmed Problem Obesity (030191019) Obesity, unspecified classification, unspecified obesity type, unspecified whether serious comorbidity present (E66.9) Active confirmed Problem Vitamin B>12< deficiency anaemia (61008140) Anemia due to vitamin B12 deficiency, unspecified B12 deficiency type (D51.9) Active confirmed Problem Overweight (850730805) Overweight (BMI 25.0-29.9) (E66.3) Active confirmed Problem Avitaminosis D (37837841) Avitaminosis D (E55.9) Active confirmed Vital Signs Heart Rate 118 /min 06/19/2025 Oximetry 98 % 06/19/2025 Blood pressure diastolic 81 mm Hg 06/19/2025 Height 64 in 06/19/2025 Blood pressure systolic 116 mm Hg 06/19/2025 Weight 150.9 lbs 06/19/2025 BMI 25.9 kg/m2 06/19/2025 Encounters Encounter Location Date Provider Diagnosis [facility] [address] [address] 07/08/2024 LORE SIMON Overweight E66.3 ; B [place] 25.0-25.9,adult Z68.25 ; Nutritional counseling Z71.3 ; Hyperlipidemia, unspecified hyperlipidemia type E78.5 and Migraine with aura and without status migrainosus, not intractable G43.109 [facility] [address] [address] 10/24/2024 SHAHEEN MCKEON BMI 26.0-26.9,adult Z68.26 ; Dietary counseling and surveillance Z71.3 ; Hyperlipidemia, unspecified hyperlipidemia type E78.5 ; Migraine with aura and without status migrainosus, not intractable G43.109 and Overweight (BMI 25.0-29.9) E66.3 [facility] [address] [address] 12/11/2024 SHAHEEN BORHOT BMI 25.0-25.9,adult Z68.25 ; Dietary counseling and surveillance Z71.3 ; Hyperlipidemia, unspecified hyperlipidemia type E78.5 ; Migraine with aura and without status migrainosus, not intractable G43.109 ; Overweight (BMI 25.0-29.9) E66.3 and Encounter for examination of blood pressure without abnormal findings Z01.30 [facility] [address] 01/27/2025 SHAHEEN BORHOT BMI 26.0-26.9,adult Z68.26 ; Dietary counseling and surveillance Z71.3 ; Hyperlipidemia, unspecified hyperlipidemia type E78.5 ; Migraine with aura and without status migrainosus, not intractable G43.109 ; Overweight (BMI 25.0-29.9) E66.3 and Encounter for examination of blood pressure without abnormal findings Z01.30 [facility] [address] 03/10/2025 SHAHEEN BORHOT BMI 26.0-26.9,adult Z68.26 ; Dietary counseling and surveillance Z71.3 ; Hyperlipidemia, unspecified hyperlipidemia type E78.5 ; Migraine with aura and without status migrainosus, not intractable G43.109 ; Overweight (BMI 25.0-29.9) E66.3 ; Encounter for examination of blood pressure without abnormal findings Z01.30 and Anemia due to vitamin B12 deficiency, unspecified B12 deficiency type D51.9 [facility] [address] [address] 05/01/2025 SHAHEEN BORHOT BMI 26.0-26.9,adult Z68.26 ; Dietary counseling and surveillance Z71.3 ; Hyperlipidemia, unspecified hyperlipidemia type E78.5 ; Migraine with aura and without status migrainosus, not intractable G43.109 ; Overweight (BMI 25.0-29.9) E66.3 ; Encounter for examination of blood pressure without abnormal findings Z01.30 and Anemia due to vitamin B12 deficiency, unspecified B12 deficiency type D51.9 [facility] [address] [address] 06/19/2025 SHAHEEN MCKEON Encounter for medica tion management Z79.899 ; BMI 24.0-24.9, adult Z68.24 ; Dietary counseling and surveillance Z71.3 ; Hyperlipidemia, unspecified hyperlipidemia type E78.5 ; Migraine with aura and without status migrainosus, not intractable G43.109 ; Encounter for examination of blood pressure without abnormal findings Z01.30 and Anemia due to vitamin B12 deficiency, unspecified B12 deficiency type D51.9 [facility] [address] [address] 08/07/2024 SHAHEEN PINOT [facility] [address] [address] 02/04/2025 SHAHEEN MCKEON [facility] [address] [place] [address] 03/10/2025 SHAHEEN MCKEON Other obesity due to excess calories E66.09 [facility] [address] [address] 07/28/2024 SHAHEEN BORHOT [facility] [address] [address] 07/28/2024 SHAHEEN WILSONHOT [facility] [address] 10/06/2024 SHAHEEN BORHOT [facility] [address] [address] 12/06/2024 SHAHEEN WILSONHOT [facility] [address] [address] 01/27/2025 SHAHEEN KATIEHOT [facility] [address] [address] 02/04/2025 SHAHEEN MCKEON Assessments Encounter Date Diagnosis (ICD Code) Assessment Notes Treatment Notes Treatment Clinical Notes Section Notes 07/08/2024 BMI 25.0-25.9,adult (ICD-10 - Z68.25) Patient is here for weight management follow-up. We focused on significance of healthy lifestyle changes. We talked about need to track steps with goal between 6000-10,000 steps daily, focus on portion control, read food labels, get adequate sleep between 7 to 8 hours, get adequate rest to the body, meditate, frequent nutritious meals including vegetables and healthy choices of lean meats, fish, and elimination of refined carbohydrates. We also talked about mindfulness and mindful eating. Particular focus was on increasing physical activity. Total time spent with 30 minutes with greater than 50% spent on counseling and coordinating care. 01/10/2022: Weight 181 pounds, BMI 31 02/27/2022: Weight 170 pounds, BMI 29 04/13/2022: Weight 168 pounds, BMI 29 05/26/2022: Weight 160 pounds 07/07/2022: Weight 154 pounds, BMI 26 08/22/2022: Weight 148 pounds, BMI 25 10/04/2022: Weight 152 lbs, BMI 26 12/20/22: Weight 152 lbs, BMI 26 05/01/23: Weight 149lbs BMI 25 07/30/2023: Weight 150lbs , BMI 25 10/02/2023, Weight 155lbs , BMI 26 11/22/2023, Weight 154lbs, BMI 25.7 01/26/2024, Weight 153lbs , BMI 25 05/06/2024, Weight 154 , BMI 26 06/06/2024: Weight 154 pounds, BMI 26.43. SECA scan completed today and interpreted with the patient. Patient has increased fat mass. Greater than average muscle mass which she was congratulated for. Visceral adipose tissue index 1.5, very close to getting in normal ranges. She is currently taking Zepbound 2.5 mg for the past month. Was previously on Wegovy 2.4 before transitioning. Reports good tolerance to the medications without significant side effects. Reports good diet. Is interested in increasing to the next dose. Will begin Zepbound 5 mg once weekly. Discussed the proper use of the medication including rotating injection sites and expected side effect profile including but not limited to nausea, constipation, abdominal pain, and heartburn. She will follow-up in the office in approximately 1 month for weight management. All patient questions answered at this time. 07/08/2024: Weight 151 pounds, BMI 25.92. Seca scan unable to be completed today due to equipment error. Patient currently on Zepbound 5 mg once weekly. Has been tolerating the medication well without side effects. Reports better effect of the medication on current state of appetite and satiety. No other concerns at this time. We will continue Zepbound 5 mg once weekly subcutaneous injection. Discussed proper use of the medication and expected side effect profile. She will follow-up in approximately 4 weeks. # Migraines: Stable at this time diagnosed with ocular migraines occurring once a month. Takes as needed ibuprofen, Tylenol, Fioricet, and Excedrin. No longer taking amitriptyline at this time. Will continue to monitor. Please follow-up with PCP. # Hyperlipidemia: Last lipid panel obtained on 05/06/2024 with values including cholesterol 217, triglycerides 112, HDL 76, and LDL 119. Will continue to monitor. All questions have been answered to patient's satisfaction. Patient verbalized understanding of diagnosis and treatments explained. Advised to call sooner prior to next visit it any questions/concerns arise. Case discussed with collaborating physician Solo Gabriel who reviewed the assessment and plan. Chart, medications, labs, vital signs reviewed. Dictation was accomplished with the use of [employer] voice recognition software, which is prone to medical misidentifications and grammatical errors. This are unintentional and the practitioner does try to identify and correct these, but some could still be present. Please do not hesitate to contact practitioner for clarification. 07/08/2024 Overweight (ICD-10 - E66.3) Patient is here for weight management follow-up. We focused on significance of healthy lifestyle changes. We talked about need to track steps with goal between 6000-10,000 steps daily, focus on portion control, read food labels, get adequate sleep between 7 to 8 hours, get adequate rest to the body, meditate, frequent nutritious meals including vegetables and healthy choices of lean meats, fish, and elimination of refined carbohydrates. We also talked about mindfulness and mindful eating. Particular focus was on increasing physical activity. Total time spent with 30 minutes with greater than 50% spent on counseling and coordinating care. 01/10/2022: Weight 181 pounds, BMI 31 02/27/2022: Weight 170 pounds, BMI 29 04/13/2022: Weight 168 pounds, BMI 29 05/26/2022: Weight 160 pounds 07/07/2022: Weight 154 pounds, BMI 26 08/22/2022: Weight 148 pounds, BMI 25 10/04/2022: Weight 152 lbs, BMI 26 12/20/22: Weight 152 lbs, BMI 26 05/01/23: Weight 149lbs BMI 25 07/30/2023: Weight 150lbs , BMI 25 10/02/2023, Weight 155lbs , BMI 26 11/22/2023, Weight 154lbs, BMI 25.7 01/26/2024, Weight 153lbs , BMI 25 05/06/2024, Weight 154 , BMI 26 06/06/2024: Weight 154 pounds, BMI 26.43. SECA scan completed today and interpreted with the patient. Patient has increased fat mass. Greater than average muscle mass which she was congratulated for. Visceral adipose tissue index 1.5, very close to getting in normal ranges. She is currently taking Zepbound 2.5 mg for the past month. Was previously on Wegovy 2.4 before transitioning. Reports good tolerance to the medications without significant side effects. Reports good diet. Is interested in increasing to the next dose. Will begin Zepbound 5 mg once weekly. Discussed the proper use of the medication including rotating injection sites and expected side effect profile including but not limited to nausea, constipation, abdominal pain, and heartburn. She will follow-up in the office in approximately 1 month for weight management. All patient questions answered at this time. 07/08/2024: Weight 151 pounds, BMI 25.92. Seca scan unable to be completed today due to equipment error. Patient currently on Zepbound 5 mg once weekly. Has been tolerating the medication well without side effects. Reports better effect of the medication on current state of appetite and satiety. No other concerns at this time. We will continue Zepbound 5 mg once weekly subcutaneous injection. Discussed proper use of the medication and expected side effect profile. She will follow-up in approximately 4 weeks. # Migraines: Stable at this time diagnosed with ocular migraines occurring once a month. Takes as needed ibuprofen, Tylenol, Fioricet, and Excedrin. No longer taking amitriptyline at this time. Will continue to monitor. Please follow-up with PCP. # Hyperlipidemia: Last lipid panel obtained on 05/06/2024 with values including cholesterol 217, triglycerides 112, HDL 76, and LDL 119. Will continue to monitor. All questions have been answered to patient's satisfaction. Patient verbalized understanding of diagnosis and treatments explained. Advised to call sooner prior to next visit it any questions/concerns arise. Case discussed with collaborating physician Solo Gabriel who reviewed the assessment and plan. Chart, medications, labs, vital signs reviewed. Dictation was accomplished with the use of [employer] voice recognition software, which is prone to medical misidentifications and grammatical errors. This are unintentional and the practitioner does try to identify and correct these, but some could still be present. Please do not hesitate to contact practitioner for clarification. 10/24/2024 BMI 26.0-26.9,adult (ICD-10 - Z68.26) #Weight Management 10/24/2024 Patient doing very well on dual incretin Continue 5mg dosing Patient will follow up with PCP regarding bruising, last CBC in April This is not likely a manifestation of the dual incretin Total time spent today was 30 minutes of which greater than 50% was spent on coordinating and counseling Patient has been found to be overweight with a BMI of (26). Patient has overweight class per BMI standards We are a board certified obesity and weight management practice Of note, some information is being carried forward from prior records for informational purposes only and is being cited so that efficiency, safety and quality of the patient's care is not compromised This note was prepared using voice recognition software and direct typing Please excuse inadvertent inward toll operator or typing errors, or uncorrected word substitutions Although every attempt has been made by the provider to proofread this document, occasional misspellings and typographical errors may still be present Due to the previous pandemic, and the use of personal protective equipment (PPE) This may decrease voice recognition accuracy Inadvertent inward toll operator errors may occur 12/11/2024 BMI 25.0-25.9,adult (ICD-10 - Z68.25) #Weight Management 12/11/2024 Patient doing very well on dual incretin Continue 5mg dosing She is concerned about upcoming formulary change to Wegovy Did not really tolerate in the past We can work on a PA and appeal for her Total time spent today was 30 minutes of which greater than 50% was spent on coordinating and counseling Patient has been found to be overweight with a BMI of (25). Patient has overweight class per BMI standards We are a board certified obesity and weight management practice Of note, some information is being carried forward from prior records for informational purposes only and is being cited so that efficiency, safety and quality of the patient's care is not compromised This note was prepared using voice recognition software and direct typing Please excuse inadvertent inward toll operator or typing errors, or uncorrected word substitutions Although every attempt has been made by the provider to proofread this document, occasional misspellings and typographical errors may still be present Due to the previous pandemic, and the use of personal protective equipment (PPE) This may decrease voice recognition accuracy Inadvertent inward toll operator errors may occur 01/27/2025 BMI 26.0-26.9,adult (ICD-10 - Z68.26) #Weight Management 01/27/2025 Continue 5mg dosing She is concerned about upcoming formulary change to Wegovy Did not really tolerate in the past We can work on a PA and appeal for her Total time spent today was 30 minutes of which greater than 50% was spent on coordinating and counseling Patient has been found to be overweight with a BMI of (26). Patient has overweight class per BMI standards We are a board certified obesity and weight management practice Of note, some information is being carried forward from prior records for informational purposes only and is being cited so that efficiency, safety and quality of the patient's care is not compromised This note was prepared using voice recognition software and direct typing Please excuse inadvertent inward toll operator or typing errors, or uncorrected word substitutions Although every attempt has been made by the provider to proofread this document, occasional misspellings and typographical errors may still be present Due to the previous pandemic, and the use of personal protective equipment (PPE) This may decrease voice recognition accuracy Inadvertent inward toll operator errors may occur 03/10/2025 BMI 26.0-26.9,adult (ICD-10 - Z68.26) #Weight Management 03/10/2025 Will attempt to keep her on the same molecule and send Mounjaro _update labs Total time spent today was 30 minutes of which greater than 50% was spent on coordinating and counseling Patient has been found to be overweight with a BMI of (26). Patient has overweight class per BMI standards We are a board certified obesity and weight management practice Of note, some information is being carried forward from prior records for informational purposes only and is being cited so that efficiency, safety and quality of the patient's care is not compromised This note was prepared using voice recognition software and direct typing Please excuse inadvertent inward toll operator or typing errors, or uncorrected word substitutions Although every attempt has been made by the provider to proofread this document, occasional misspellings and typographical errors may still be present Due to the previous pandemic, and the use of personal protective equipment (PPE) This may decrease voice recognition accuracy Inadvertent inward toll operator errors may occur 05/01/2025 BMI 26.0-26.9,adult (ICD-10 - Z68.26) #Weight Management 05/01/2025 Will follow-up on labs later this morning Continue Shira Increasing muscle and decreasing fat mass Total time spent today was 30 minutes of which greater than 50% was spent on coordinating and counseling Patient has been found to be overweight with a BMI of (26). Patient has overweight class per BMI standards We are a board certified obesity and weight management practice Of note, some information is being carried forward from prior records for informational purposes only and is being cited so that efficiency, safety and quality of the patient's care is not compromised This note was prepared using voice recognition software and direct typing Please excuse inadvertent inward toll operator or typing errors, or uncorrected word substitutions Although every attempt has been made by the provider to proofread this document, occasional misspellings and typographical errors may still be present Due to the previous pandemic, and the use of personal protective equipment (PPE) This may decrease voice recognition accuracy Inadvertent inward toll operator errors may occur 06/19/2025 BMI 24.0-24.9, adult (ICD-10 - Z68.24) #Weight Management 06/19/2025 @ target goal weight we disc options moving forward post 07/16/2025 given insurance coverage Continue kiran Silva cmaintenance dosing Increasing muscle and decreasing fat mass Total time spent today was 30 minutes of which greater than 50% was spent on coordinating and counseling Patient has been found to be normal with a BMI of (24). Patient has overweight class per BMI standards We are a board certified obesity and weight management practice Of note, some information is being carried forward from prior records for informational purposes only and is being cited so that efficiency, safety and quality of the patient's care is not compromised This note was prepared using voice recognition software and direct typing Please excuse inadvertent inward toll operator or typing errors, or uncorrected word substitutions Although every attempt has been made by the provider to proofread this document, occasional misspellings and typographical errors may still be present Due to the previous pandemic, and the use of personal protective equipment (PPE) This may decrease voice recognition accuracy Inadvertent inward toll operator errors may occur 06/19/2025 Encounter for medication management (ICD-10 - Z79.899) #Weight Management 06/19/2025 @ target goal weight we disc options moving forward post 07/16/2025 given insurance coverage Continue Mounjaro, dis cmaintenance dosing Increasing muscle and decreasing fat mass Total time spent today was 30 minutes of which greater than 50% was spent on coordinating and counseling Patient has been found to be normal with a BMI of (24). Patient has overweight class per BMI standards We are a board certified obesity and weight management practice Of note, some information is being carried forward from prior records for informational purposes only and is being cited so that efficiency, safety and quality of the patient's care is not compromised This note was prepared using voice recognition software and direct typing Please excuse inadvertent inward toll operator or typing errors, or uncorrected word substitutions Although every attempt has been made by the provider to proofread this document, occasional misspellings and typographical errors may still be present Due to the previous pandemic, and the use of personal protective equipment (PPE) This may decrease voice recognition accuracy Inadvertent inward toll operator errors may occur 06/19/2025 Dietary counseling and surveillance (ICD-10 - Z71.3) #Weight Management 06/19/2025 @ target goal weight we disc options moving forward post 07/16/2025 given insurance coverage Continue Mounjaro, dis cmaintenance dosing Increasing muscle and decreasing fat mass Total time spent today was 30 minutes of which greater than 50% was spent on coordinating and counseling Patient has been found to be normal with a BMI of (24). Patient has overweight class per BMI standards We are a board certified obesity and weight management practice Of note, some information is being carried forward from prior records for informational purposes only and is being cited so that efficiency, safety and quality of the patient's care is not compromised This note was prepared using voice recognition software and direct typing Please excuse inadvertent inward toll operator or typing errors, or uncorrected word substitutions Although every attempt has been made by the provider to proofread this document, occasional misspellings and typographical errors may still be present Due to the previous pandemic, and the use of personal protective equipment (PPE) This may decrease voice recognition accuracy Inadvertent inward toll operator errors may occur 03/10/2025 Other obesity due to excess calories (ICD-10 - E66.09) Electronic Prior Authorization was requested for Zepbound 5 MG/0.5ML Solution. Provider can order medication once approval received. 05/01/2025 Dietary counseling and surveillance (ICD-10 - Z71.3) #Weight Management 05/01/2025 Will follow-up on labs later this morning Continue Mounjaro Increasing muscle and decreasing fat mass Total time spent today was 30 minutes of which greater than 50% was spent on coordinating and counseling Patient has been found to be overweight with a BMI of (26). Patient has overweight class per BMI standards We are a board certified obesity and weight management practice Of note, some information is being carried forward from prior records for informational purposes only and is being cited so that efficiency, safety and quality of the patient's care is not compromised This note was prepared using voice recognition software and direct typing Please excuse inadvertent inward toll operator or typing errors, or uncorrected word substitutions Although every attempt has been made by the provider to proofread this document, occasional misspellings and typographical errors may still be present Due to the previous pandemic, and the use of personal protective equipment (PPE) This may decrease voice recognition accuracy Inadvertent inward toll operator errors may occur 01/27/2025 Dietary counseling and surveillance (ICD-10 - Z71.3) #Weight Management 01/27/2025 Continue 5mg dosing She is concerned about upcoming formulary change to Wegovy Did not really tolerate in the past We can work on a PA and appeal for her Total time spent today was 30 minutes of which greater than 50% was spent on coordinating and counseling Patient has been found to be overweight with a BMI of (26). Patient has overweight class per BMI standards We are a board certified obesity and weight management practice Of note, some information is being carried forward from prior records for informational purposes only and is being cited so that efficiency, safety and quality of the patient's care is not compromised This note was prepared using voice recognition software and direct typing Please excuse inadvertent inward toll operator or typing errors, or uncorrected word substitutions Although every attempt has been made by the provider to proofread this document, occasional misspellings and typographical errors may still be present Due to the previous pandemic, and the use of personal protective equipment (PPE) This may decrease voice recognition accuracy Inadvertent inward toll operator errors may occur 03/10/2025 Dietary counseling and surveillance (ICD-10 - Z71.3) #Weight Management 03/10/2025 Will attempt to keep her on the same molecule and send Mounjaro _update labs Total time spent today was 30 minutes of which greater than 50% was spent on coordinating and counseling Patient has been found to be overweight with a BMI of (26). Patient has overweight class per BMI standards We are a board certified obesity and weight management practice Of note, some information is being carried forward from prior records for informational purposes only and is being cited so that efficiency, safety and quality of the patient's care is not compromised This note was prepared using voice recognition software and direct typing Please excuse inadvertent inward toll operator or typing errors, or uncorrected word substitutions Although every attempt has been made by the provider to proofread this document, occasional misspellings and typographical errors may still be present Due to the previous pandemic, and the use of personal protective equipment (PPE) This may decrease voice recognition accuracy Inadvertent inward toll operator errors may occur 12/11/2024 Dietary counseling and surveillance (ICD-10 - Z71.3) #Weight Management 12/11/2024 Patient doing very well on dual incretin Continue 5mg dosing She is concerned about upcoming formulary change to Wegovy Did not really tolerate in the past We can work on a PA and appeal for her Total time spent today was 30 minutes of which greater than 50% was spent on coordinating and counseling Patient has been found to be overweight with a BMI of (25). Patient has overweight class per BMI standards We are a board certified obesity and weight management practice Of note, some information is being carried forward from prior records for informational purposes only and is being cited so that efficiency, safety and quality of the patient's care is not compromised This note was prepared using voice recognition software and direct typing Please excuse inadvertent inward toll operator or typing errors, or uncorrected word substitutions Although every attempt has been made by the provider to proofread this document, occasional misspellings and typographical errors may still be present Due to the previous pandemic, and the use of personal protective equipment (PPE) This may decrease voice recognition accuracy Inadvertent inward toll operator errors may occur 07/08/2024 Nutritional counseling (ICD-10 - Z71.3) Patient is here for weight management follow-up. We focused on significance of healthy lifestyle changes. We talked about need to track steps with goal between 6000-10,000 steps daily, focus on portion control, read food labels, get adequate sleep between 7 to 8 hours, get adequate rest to the body, meditate, frequent nutritious meals including vegetables and healthy choices of lean meats, fish, and elimination of refined carbohydrates. We also talked about mindfulness and mindful eating. Particular focus was on increasing physical activity. Total time spent with 30 minutes with greater than 50% spent on counseling and coordinating care. 01/10/2022: Weight 181 pounds, BMI 31 02/27/2022: Weight 170 pounds, BMI 29 04/13/2022: Weight 168 pounds, BMI 29 05/26/2022: Weight 160 pounds 07/07/2022: Weight 154 pounds, BMI 26 08/22/2022: Weight 148 pounds, BMI 25 10/04/2022: Weight 152 lbs, BMI 26 12/20/22: Weight 152 lbs, BMI 26 05/01/23: Weight 149lbs BMI 25 07/30/2023: Weight 150lbs , BMI 25 10/02/2023, Weight 155lbs , BMI 26 11/22/2023, Weight 154lbs, BMI 25.7 01/26/2024, Weight 153lbs , BMI 25 05/06/2024, Weight 154 , BMI 26 06/06/2024: Weight 154 pounds, BMI 26.43. SECA scan completed today and interpreted with the patient. Patient has increased fat mass. Greater than average muscle mass which she was congratulated for. Visceral adipose tissue index 1.5, very close to getting in normal ranges. She is currently taking Zepbound 2.5 mg for the past month. Was previously on Wegovy 2.4 before transitioning. Reports good tolerance to the medications without significant side effects. Reports good diet. Is interested in increasing to the next dose. Will begin Zepbound 5 mg once weekly. Discussed the proper use of the medication including rotating injection sites and expected side effect profile including but not limited to nausea, constipation, abdominal pain, and heartburn. She will follow-up in the office in approximately 1 month for weight management. All patient questions answered at this time. 07/08/2024: Weight 151 pounds, BMI 25.92. Seca scan unable to be completed today due to equipment error. Patient currently on Zepbound 5 mg once weekly. Has been tolerating the medication well without side effects. Reports better effect of the medication on current state of appetite and satiety. No other concerns at this time. We will continue Zepbound 5 mg once weekly subcutaneous injection. Discussed proper use of the medication and expected side effect profile. She will follow-up in approximately 4 weeks. # Migraines: Stable at this time diagnosed with ocular migraines occurring once a month. Takes as needed ibuprofen, Tylenol, Fioricet, and Excedrin. No longer taking amitriptyline at this time. Will continue to monitor. Please follow-up with PCP. # Hyperlipidemia: Last lipid panel obtained on 05/06/2024 with values including cholesterol 217, triglycerides 112, HDL 76, and LDL 119. Will continue to monitor. All questions have been answered to patient's satisfaction. Patient verbalized understanding of diagnosis and treatments explained. Advised to call sooner prior to next visit it any questions/concerns arise. Case discussed with collaborating physician Solo Gabriel who reviewed the assessment and plan. Chart, medications, labs, vital signs reviewed. Dictation was accomplished with the use of [employer] voice recognition software, which is prone to medical misidentifications and grammatical errors. This are unintentional and the practitioner does try to identify and correct these, but some could still be present. Please do not hesitate to contact practitioner for clarification. 10/24/2024 Dietary counseling and surveillance (ICD-10 - Z71.3) #Weight Management 10/24/2024 Patient doing very well on dual incretin Continue 5mg dosing Patient will follow up with PCP regarding bruising, last CBC in April This is not likely a manifestation of the dual incretin Total time spent today was 30 minutes of which greater than 50% was spent on coordinating and counseling Patient has been found to be overweight with a BMI of (26). Patient has overweight class per BMI standards We are a board certified obesity and weight management practice Of note, some information is being carried forward from prior records for informational purposes only and is being cited so that efficiency, safety and quality of the patient's care is not compromised This note was prepared using voice recognition software and direct typing Please excuse inadvertent inward toll operator or typing errors, or uncorrected word substitutions Although every attempt has been made by the provider to proofread this document, occasional misspellings and typographical errors may still be present Due to the previous pandemic, and the use of personal protective equipment (PPE) This may decrease voice recognition accuracy Inadvertent inward toll operator errors may occur 10/24/2024 Hyperlipidemia, unspecified hyperlipidemia type (ICD-10 - E78.5) #Weight Management 10/24/2024 Patient doing very well on dual incretin Continue 5mg dosing Patient will follow up with PCP regarding bruising, last CBC in April This is not likely a manifestation of the dual incretin Total time spent today was 30 minutes of which greater than 50% was spent on coordinating and counseling Patient has been found to be overweight with a BMI of (26). Patient has overweight class per BMI standards We are a board certified obesity and weight management practice Of note, some information is being carried forward from prior records for informational purposes only and is being cited so that efficiency, safety and quality of the patient's care is not compromised This note was prepared using voice recognition software and direct typing Please excuse inadvertent inward toll operator or typing errors, or uncorrected word substitutions Although every attempt has been made by the provider to proofread this document, occasional misspellings and typographical errors may still be present Due to the previous pandemic, and the use of personal protective equipment (PPE) This may decrease voice recognition accuracy Inadvertent inward toll operator errors may occur 12/11/2024 Hyperlipidemia, unspecified hyperlipidemia type (ICD-10 - E78.5) #Weight Management 12/11/2024 Patient doing very well on dual incretin Continue 5mg dosing She is concerned about upcoming formulary change to Wegovy Did not really tolerate in the past We can work on a PA and appeal for her Total time spent today was 30 minutes of which greater than 50% was spent on coordinating and counseling Patient has been found to be overweight with a BMI of (25). Patient has overweight class per BMI standards We are a board certified obesity and weight management practice Of note, some information is being carried forward from prior records for informational purposes only and is being cited so that efficiency, safety and quality of the patient's care is not compromised This note was prepared using voice recognition software and direct typing Please excuse inadvertent inward toll operator or typing errors, or uncorrected word substitutions Although every attempt has been made by the provider to proofread this document, occasional misspellings and typographical errors may still be present Due to the previous pandemic, and the use of personal protective equipment (PPE) This may decrease voice recognition accuracy Inadvertent inward toll operator errors may occur 07/08/2024 Hyperlipidemia, unspecified hyperlipidemia type (ICD-10 - E78.5) Patient is here for weight management follow-up. We focused on significance of healthy lifestyle changes. We talked about need to track steps with goal between 6000-10,000 steps daily, focus on portion control, read food labels, get adequate sleep between 7 to 8 hours, get adequate rest to the body, meditate, frequent nutritious meals including vegetables and healthy choices of lean meats, fish, and elimination of refined carbohydrates. We also talked about mindfulness and mindful eating. Particular focus was on increasing physical activity. Total time spent with 30 minutes with greater than 50% spent on counseling and coordinating care. 01/10/2022: Weight 181 pounds, BMI 31 02/27/2022: Weight 170 pounds, BMI 29 04/13/2022: Weight 168 pounds, BMI 29 05/26/2022: Weight 160 pounds 07/07/2022: Weight 154 pounds, BMI 26 08/22/2022: Weight 148 pounds, BMI 25 10/04/2022: Weight 152 lbs, BMI 26 12/20/22: Weight 152 lbs, BMI 26 05/01/23: Weight 149lbs BMI 25 07/30/2023: Weight 150lbs , BMI 25 10/02/2023, Weight 155lbs , BMI 26 11/22/2023, Weight 154lbs, BMI 25.7 01/26/2024, Weight 153lbs , BMI 25 05/06/2024, Weight 154 , BMI 26 06/06/2024: Weight 154 pounds, BMI 26.43. SECA scan completed today and interpreted with the patient. Patient has increased fat mass. Greater than average muscle mass which she was congratulated for. Visceral adipose tissue index 1.5, very close to getting in normal ranges. She is currently taking Zepbound 2.5 mg for the past month. Was previously on Wegovy 2.4 before transitioning. Reports good tolerance to the medications without significant side effects. Reports good diet. Is interested in increasing to the next dose. Will begin Zepbound 5 mg once weekly. Discussed the proper use of the medication including rotating injection sites and expected side effect profile including but not limited to nausea, constipation, abdominal pain, and heartburn. She will follow-up in the office in approximately 1 month for weight management. All patient questions answered at this time. 07/08/2024: Weight 151 pounds, BMI 25.92. Seca scan unable to be completed today due to equipment error. Patient currently on Zepbound 5 mg once weekly. Has been tolerating the medication well without side effects. Reports better effect of the medication on current state of appetite and satiety. No other concerns at this time. We will continue Zepbound 5 mg once weekly subcutaneous injection. Discussed proper use of the medication and expected side effect profile. She will follow-up in approximately 4 weeks. # Migraines: Stable at this time diagnosed with ocular migraines occurring once a month. Takes as needed ibuprofen, Tylenol, Fioricet, and Excedrin. No longer taking amitriptyline at this time. Will continue to monitor. Please follow-up with PCP. # Hyperlipidemia: Last lipid panel obtained on 05/06/2024 with values including cholesterol 217, triglycerides 112, HDL 76, and LDL 119. Will continue to monitor. All questions have been answered to patient's satisfaction. Patient verbalized understanding of diagnosis and treatments explained. Advised to call sooner prior to next visit it any questions/concerns arise. Case discussed with collaborating physician Solo Gabriel who reviewed the assessment and plan. Chart, medications, labs, vital signs reviewed. Dictation was accomplished with the use of [employer] voice recognition software, which is prone to medical misidentifications and grammatical errors. This are unintentional and the practitioner does try to identify and correct these, but some could still be present. Please do not hesitate to contact practitioner for clarification. 03/10/2025 Hyperlipidemia, unspecified hyperlipidemia type (ICD-10 - E78.5) #Weight Management 03/10/2025 Will attempt to keep her on the same molecule and send Mounjaro _update labs Total time spent today was 30 minutes of which greater than 50% was spent on coordinating and counseling Patient has been found to be overweight with a BMI of (26). Patient has overweight class per BMI standards We are a board certified obesity and weight management practice Of note, some information is being carried forward from prior records for informational purposes only and is being cited so that efficiency, safety and quality of the patient's care is not compromised This note was prepared using voice recognition software and direct typing Please excuse inadvertent inward toll operator or typing errors, or uncorrected word substitutions Although every attempt has been made by the provider to proofread this document, occasional misspellings and typographical errors may still be present Due to the previous pandemic, and the use of personal protective equipment (PPE) This may decrease voice recognition accuracy Inadvertent inward toll operator errors may occur 01/27/2025 Hyperlipidemia, unspecified hyperlipidemia type (ICD-10 - E78.5) #Weight Management 01/27/2025 Continue 5mg dosing She is concerned about upcoming formulary change to Wegovy Did not really tolerate in the past We can work on a PA and appeal for her Total time spent today was 30 minutes of which greater than 50% was spent on coordinating and counseling Patient has been found to be overweight with a BMI of (26). Patient has overweight class per BMI standards We are a board certified obesity and weight management practice Of note, some information is being carried forward from prior records for informational purposes only and is being cited so that efficiency, safety and quality of the patient's care is not compromised This note was prepared using voice recognition software and direct typing Please excuse inadvertent inward toll operator or typing errors, or uncorrected word substitutions Although every attempt has been made by the provider to proofread this document, occasional misspellings and typographical errors may still be present Due to the previous pandemic, and the use of personal protective equipment (PPE) This may decrease voice recognition accuracy Inadvertent inward toll operator errors may occur 05/01/2025 Hyperlipidemia, unspecified hyperlipidemia type (ICD-10 - E78.5) #Weight Management 05/01/2025 Will follow-up on labs later this morning Continue Mounjaro Increasing muscle and decreasing fat mass Total time spent today was 30 minutes of which greater than 50% was spent on coordinating and counseling Patient has been found to be overweight with a BMI of (26). Patient has overweight class per BMI standards We are a board certified obesity and weight management practice Of note, some information is being carried forward from prior records for informational purposes only and is being cited so that efficiency, safety and quality of the patient's care is not compromised This note was prepared using voice recognition software and direct typing Please excuse inadvertent inward toll operator or typing errors, or uncorrected word substitutions Although every attempt has been made by the provider to proofread this document, occasional misspellings and typographical errors may still be present Due to the previous pandemic, and the use of personal protective equipment (PPE) This may decrease voice recognition accuracy Inadvertent inward toll operator errors may occur 06/19/2025 Hyperlipidemia, unspecified hyperlipidemia type (ICD-10 - E78.5) #Weight Management 06/19/2025 @ target goal weight we disc options moving forward post 07/16/2025 given insurance coverage Continue Mounjaro, dis cmaintenance dosing Increasing muscle and decreasing fat mass Total time spent today was 30 minutes of which greater than 50% was spent on coordinating and counseling Patient has been found to be normal with a BMI of (24). Patient has overweight class per BMI standards We are a board certified obesity and weight management practice Of note, some information is being carried forward from prior records for informational purposes only and is being cited so that efficiency, safety and quality of the patient's care is not compromised This note was prepared using voice recognition software and direct typing Please excuse inadvertent inward toll operator or typing errors, or uncorrected word substitutions Although every attempt has been made by the provider to proofread this document, occasional misspellings and typographical errors may still be present Due to the previous pandemic, and the use of personal protective equipment (PPE) This may decrease voice recognition accuracy Inadvertent inward toll operator errors may occur 06/19/2025 Migraine with aura and without status migrainosus, not intractable (ICD-10 - G43.109) #Weight Management 06/19/2025 @ target goal weight we disc options moving forward post 07/16/2025 given insurance coverage Continue Mounjaro, dis cmaintenance dosing Increasing muscle and decreasing fat mass Total time spent today was 30 minutes of which greater than 50% was spent on coordinating and counseling Patient has been found to be normal with a BMI of (24). Patient has overweight class per BMI standards We are a board certified obesity and weight management practice Of note, some information is being carried forward from prior records for informational purposes only and is being cited so that efficiency, safety and quality of the patient's care is not compromised This note was prepared using voice recognition software and direct typing Please excuse inadvertent inward toll operator or typing errors, or uncorrected word substitutions Although every attempt has been made by the provider to proofread this document, occasional misspellings and typographical errors may still be present Due to the previous pandemic, and the use of personal protective equipment (PPE) This may decrease voice recognition accuracy Inadvertent inward toll operator errors may occur 05/01/2025 Migraine with aura and without status migrainosus, not intractable (ICD-10 - G43.109) #Weight Management 05/01/2025 Will follow-up on labs later this morning Continue Mounjaro Increasing muscle and decreasing fat mass Total time spent today was 30 minutes of which greater than 50% was spent on coordinating and counseling Patient has been found to be overweight with a BMI of (26). Patient has overweight class per BMI standards We are a board certified obesity and weight management practice Of note, some information is being carried forward from prior records for informational purposes only and is being cited so that efficiency, safety and quality of the patient's care is not compromised This note was prepared using voice recognition software and direct typing Please excuse inadvertent inward toll operator or typing errors, or uncorrected word substitutions Although every attempt has been made by the provider to proofread this document, occasional misspellings and typographical errors may still be present Due to the previous pandemic, and the use of personal protective equipment (PPE) This may decrease voice recognition accuracy Inadvertent inward toll operator errors may occur 01/27/2025 Migraine with aura and without status migrainosus, not intractable (ICD-10 - G43.109) #Weight Management 01/27/2025 Continue 5mg dosing She is concerned about upcoming formulary change to Wegovy Did not really tolerate in the past We can work on a PA and appeal for her Total time spent today was 30 minutes of which greater than 50% was spent on coordinating and counseling Patient has been found to be overweight with a BMI of (26). Patient has overweight class per BMI standards We are a board certified obesity and weight management practice Of note, some information is being carried forward from prior records for informational purposes only and is being cited so that efficiency, safety and quality of the patient's care is not compromised This note was prepared using voice recognition software and direct typing Please excuse inadvertent inward toll operator or typing errors, or uncorrected word substitutions Although every attempt has been made by the provider to proofread this document, occasional misspellings and typographical errors may still be present Due to the previous pandemic, and the use of personal protective equipment (PPE) This may decrease voice recognition accuracy Inadvertent inward toll operator errors may occur 03/10/2025 Migraine with aura and without status migrainosus, not intractable (ICD-10 - G43.109) #Weight Management 03/10/2025 Will attempt to keep her on the same molecule and send Mounjaro _update labs Total time spent today was 30 minutes of which greater than 50% was spent on coordinating and counseling Patient has been found to be overweight with a BMI of (26). Patient has overweight class per BMI standards We are a board certified obesity and weight management practice Of note, some information is being carried forward from prior records for informational purposes only and is being cited so that efficiency, safety and quality of the patient's care is not compromised This note was prepared using voice recognition software and direct typing Please excuse inadvertent inward toll operator or typing errors, or uncorrected word substitutions Although every attempt has been made by the provider to proofread this document, occasional misspellings and typographical errors may still be present Due to the previous pandemic, and the use of personal protective equipment (PPE) This may decrease voice recognition accuracy Inadvertent inward toll operator errors may occur 07/08/2024 Migraine with aura and without status migrainosus, not intractable (ICD-10 - G43.109) Patient is here for weight management follow-up. We focused on significance of healthy lifestyle changes. We talked about need to track steps with goal between 6000-10,000 steps daily, focus on portion control, read food labels, get adequate sleep between 7 to 8 hours, get adequate rest to the body, meditate, frequent nutritious meals including vegetables and healthy choices of lean meats, fish, and elimination of refined carbohydrates. We also talked about mindfulness and mindful eating. Particular focus was on increasing physical activity. Total time spent with 30 minutes with greater than 50% spent on counseling and coordinating care. 01/10/2022: Weight 181 pounds, BMI 31 02/27/2022: Weight 170 pounds, BMI 29 04/13/2022: Weight 168 pounds, BMI 29 05/26/2022: Weight 160 pounds 07/07/2022: Weight 154 pounds, BMI 26 08/22/2022: Weight 148 pounds, BMI 25 10/04/2022: Weight 152 lbs, BMI 26 12/20/22: Weight 152 lbs, BMI 26 05/01/23: Weight 149lbs BMI 25 07/30/2023: Weight 150lbs , BMI 25 10/02/2023, Weight 155lbs , BMI 26 11/22/2023, Weight 154lbs, BMI 25.7 01/26/2024, Weight 153lbs , BMI 25 05/06/2024, Weight 154 , BMI 26 06/06/2024: Weight 154 pounds, BMI 26.43. SECA scan completed today and interpreted with the patient. Patient has increased fat mass. Greater than average muscle mass which she was congratulated for. Visceral adipose tissue index 1.5, very close to getting in normal ranges. She is currently taking Zepbound 2.5 mg for the past month. Was previously on Wegovy 2.4 before transitioning. Reports good tolerance to the medications without significant side effects. Reports good diet. Is interested in increasing to the next dose. Will begin Zepbound 5 mg once weekly. Discussed the proper use of the medication including rotating injection sites and expected side effect profile including but not limited to nausea, constipation, abdominal pain, and heartburn. She will follow-up in the office in approximately 1 month for weight management. All patient questions answered at this time. 07/08/2024: Weight 151 pounds, BMI 25.92. Seca scan unable to be completed today due to equipment error. Patient currently on Zepbound 5 mg once weekly. Has been tolerating the medication well without side effects. Reports better effect of the medication on current state of appetite and satiety. No other concerns at this time. We will continue Zepbound 5 mg once weekly subcutaneous injection. Discussed proper use of the medication and expected side effect profile. She will follow-up in approximately 4 weeks. # Migraines: Stable at this time diagnosed with ocular migraines occurring once a month. Takes as needed ibuprofen, Tylenol, Fioricet, and Excedrin. No longer taking amitriptyline at this time. Will continue to monitor. Please follow-up with PCP. # Hyperlipidemia: Last lipid panel obtained on 05/06/2024 with values including cholesterol 217, triglycerides 112, HDL 76, and LDL 119. Will continue to monitor. All questions have been answered to patient's satisfaction. Patient verbalized understanding of diagnosis and treatments explained. Advised to call sooner prior to next visit it any questions/concerns arise. Case discussed with collaborating physician Solo Gabriel who reviewed the assessment and plan. Chart, medications, labs, vital signs reviewed. Dictation was accomplished with the use of [employer] voice recognition software, which is prone to medical misidentifications and grammatical errors. This are unintentional and the practitioner does try to identify and correct these, but some could still be present. Please do not hesitate to contact practitioner for clarification. 12/11/2024 Migraine with aura and without status migrainosus, not intractable (ICD-10 - G43.109) #Weight Management 12/11/2024 Patient doing very well on dual incretin Continue 5mg dosing She is concerned about upcoming formulary change to Wegovy Did not really tolerate in the past We can work on a PA and appeal for her Total time spent today was 30 minutes of which greater than 50% was spent on coordinating and counseling Patient has been found to be overweight with a BMI of (25). Patient has overweight class per BMI standards We are a board certified obesity and weight management practice Of note, some information is being carried forward from prior records for informational purposes only and is being cited so that efficiency, safety and quality of the patient's care is not compromised This note was prepared using voice recognition software and direct typing Please excuse inadvertent inward toll operator or typing errors, or uncorrected word substitutions Although every attempt has been made by the provider to proofread this document, occasional misspellings and typographical errors may still be present Due to the previous pandemic, and the use of personal protective equipment (PPE) This may decrease voice recognition accuracy Inadvertent inward toll operator errors may occur 10/24/2024 Migraine with aura and without status migrainosus, not intractable (ICD-10 - G43.109) #Weight Management 10/24/2024 Patient doing very well on dual incretin Continue 5mg dosing Patient will follow up with PCP regarding bruising, last CBC in April This is not likely a manifestation of the dual incretin Total time spent today was 30 minutes of which greater than 50% was spent on coordinating and counseling Patient has been found to be overweight with a BMI of (26). Patient has overweight class per BMI standards We are a board certified obesity and weight management practice Of note, some information is being carried forward from prior records for informational purposes only and is being cited so that efficiency, safety and quality of the patient's care is not compromised This note was prepared using voice recognition software and direct typing Please excuse inadvertent inward toll operator or typing errors, or uncorrected word substitutions Although every attempt has been made by the provider to proofread this document, occasional misspellings and typographical errors may still be present Due to the previous pandemic, and the use of personal protective equipment (PPE) This may decrease voice recognition accuracy Inadvertent inward toll operator errors may occur 12/11/2024 Overweight (BMI 25.0-29.9) (ICD-10 - E66.3) #Weight Management 12/11/2024 Patient doing very well on dual incretin Continue 5mg dosing She is concerned about upcoming formulary change to Wegovy Did not really tolerate in the past We can work on a PA and appeal for her Total time spent today was 30 minutes of which greater than 50% was spent on coordinating and counseling Patient has been found to be overweight with a BMI of (25). Patient has overweight class per BMI standards We are a board certified obesity and weight management practice Of note, some information is being carried forward from prior records for informational purposes only and is being cited so that efficiency, safety and quality of the patient's care is not compromised This note was prepared using voice recognition software and direct typing Please excuse inadvertent inward toll operator or typing errors, or uncorrected word substitutions Although every attempt has been made by the provider to proofread this document, occasional misspellings and typographical errors may still be present Due to the previous pandemic, and the use of personal protective equipment (PPE) This may decrease voice recognition accuracy Inadvertent inward toll operator errors may occur 01/27/2025 Encounter for examination of blood pressure without abnormal findings (ICD-10 - Z01.30) #Weight Management 01/27/2025 Continue 5mg dosing She is concerned about upcoming formulary change to Wegovy Did not really tolerate in the past We can work on a PA and appeal for her Total time spent today was 30 minutes of which greater than 50% was spent on coordinating and counseling Patient has been found to be overweight with a BMI of (26). Patient has overweight class per BMI standards We are a board certified obesity and weight management practice Of note, some information is being carried forward from prior records for informational purposes only and is being cited so that efficiency, safety and quality of the patient's care is not compromised This note was prepared using voice recognition software and direct typing Please excuse inadvertent inward toll operator or typing errors, or uncorrected word substitutions Although every attempt has been made by the provider to proofread this document, occasional misspellings and typographical errors may still be present Due to the previous pandemic, and the use of personal protective equipment (PPE) This may decrease voice recognition accuracy Inadvertent inward toll operator errors may occur 10/24/2024 Overweight (BMI 25.0-29.9) (ICD-10 - E66.3) #Weight Management 10/24/2024 Patient doing very well on dual incretin Continue 5mg dosing Patient will follow up with PCP regarding bruising, last CBC in April This is not likely a manifestation of the dual incretin Total time spent today was 30 minutes of which greater than 50% was spent on coordinating and counseling Patient has been found to be overweight with a BMI of (26). Patient has overweight class per BMI standards We are a board certified obesity and weight management practice Of note, some information is being carried forward from prior records for informational purposes only and is being cited so that efficiency, safety and quality of the patient's care is not compromised This note was prepared using voice recognition software and direct typing Please excuse inadvertent inward toll operator or typing errors, or uncorrected word substitutions Although every attempt has been made by the provider to proofread this document, occasional misspellings and typographical errors may still be present Due to the previous pandemic, and the use of personal protective equipment (PPE) This may decrease voice recognition accuracy Inadvertent inward toll operator errors may occur 12/11/2024 Encounter for examination of blood pressure without abnormal findings (ICD-10 - Z01.30) #Weight Management 12/11/2024 Patient doing very well on dual incretin Continue 5mg dosing She is concerned about upcoming formulary change to Wegovy Did not really tolerate in the past We can work on a PA and appeal for her Total time spent today was 30 minutes of which greater than 50% was spent on coordinating and counseling Patient has been found to be overweight with a BMI of (25). Patient has overweight class per BMI standards We are a board certified obesity and weight management practice Of note, some information is being carried forward from prior records for informational purposes only and is being cited so that efficiency, safety and quality of the patient's care is not compromised This note was prepared using voice recognition software and direct typing Please excuse inadvertent inward toll operator or typing errors, or uncorrected word substitutions Although every attempt has been made by the provider to proofread this document, occasional misspellings and typographical errors may still be present Due to the previous pandemic, and the use of personal protective equipment (PPE) This may decrease voice recognition accuracy Inadvertent inward toll operator errors may occur 01/27/2025 Overweight (BMI 25.0-29.9) (ICD-10 - E66.3) #Weight Management 01/27/2025 Continue 5mg dosing She is concerned about upcoming formulary change to Wegovy Did not really tolerate in the past We can work on a PA and appeal for her Total time spent today was 30 minutes of which greater than 50% was spent on coordinating and counseling Patient has been found to be overweight with a BMI of (26). Patient has overweight class per BMI standards We are a board certified obesity and weight management practice Of note, some information is being carried forward from prior records for informational purposes only and is being cited so that efficiency, safety and quality of the patient's care is not compromised This note was prepared using voice recognition software and direct typing Please excuse inadvertent inward toll operator or typing errors, or uncorrected word substitutions Although every attempt has been made by the provider to proofread this document, occasional misspellings and typographical errors may still be present Due to the previous pandemic, and the use of personal protective equipment (PPE) This may decrease voice recognition accuracy Inadvertent inward toll operator errors may occur 03/10/2025 Encounter for examination of blood pressure without abnormal findings (ICD-10 - Z01.30) #Weight Management 03/10/2025 Will attempt to keep her on the same molecule and send Mounjaro _update labs Total time spent today was 30 minutes of which greater than 50% was spent on coordinating and counseling Patient has been found to be overweight with a BMI of (26). Patient has overweight class per BMI standards We are a board certified obesity and weight management practice Of note, some information is being carried forward from prior records for informational purposes only and is being cited so that efficiency, safety and quality of the patient's care is not compromised This note was prepared using voice recognition software and direct typing Please excuse inadvertent inward toll operator or typing errors, or uncorrected word substitutions Although every attempt has been made by the provider to proofread this document, occasional misspellings and typographical errors may still be present Due to the previous pandemic, and the use of personal protective equipment (PPE) This may decrease voice recognition accuracy Inadvertent inward toll operator errors may occur 03/10/2025 Overweight (BMI 25.0-29.9) (ICD-10 - E66.3) #Weight Management 03/10/2025 Will attempt to keep her on the same molecule and send Mounjaro _update labs Total time spent today was 30 minutes of which greater than 50% was spent on coordinating and counseling Patient has been found to be overweight with a BMI of (26). Patient has overweight class per BMI standards We are a board certified obesity and weight management practice Of note, some information is being carried forward from prior records for informational purposes only and is being cited so that efficiency, safety and quality of the patient's care is not compromised This note was prepared using voice recognition software and direct typing Please excuse inadvertent inward toll operator or typing errors, or uncorrected word substitutions Although every attempt has been made by the provider to proofread this document, occasional misspellings and typographical errors may still be present Due to the previous pandemic, and the use of personal protective equipment (PPE) This may decrease voice recognition accuracy Inadvertent inward toll operator errors may occur 05/01/2025 Overweight (BMI 25.0-29.9) (ICD-10 - E66.3) #Weight Management 05/01/2025 Will follow-up on labs later this morning Continue Mounjaro Increasing muscle and decreasing fat mass Total time spent today was 30 minutes of which greater than 50% was spent on coordinating and counseling Patient has been found to be overweight with a BMI of (26). Patient has overweight class per BMI standards We are a board certified obesity and weight management practice Of note, some information is being carried forward from prior records for informational purposes only and is being cited so that efficiency, safety and quality of the patient's care is not compromised This note was prepared using voice recognition software and direct typing Please excuse inadvertent inward toll operator or typing errors, or uncorrected word substitutions Although every attempt has been made by the provider to proofread this document, occasional misspellings and typographical errors may still be present Due to the previous pandemic, and the use of personal protective equipment (PPE) This may decrease voice recognition accuracy Inadvertent inward toll operator errors may occur 06/19/2025 Encounter for examination of blood pressure without abnormal findings (ICD-10 - Z01.30) #Weight Management 06/19/2025 @ target goal weight we disc options moving forward post 07/16/2025 given insurance coverage Continue Mounjaro, dis cmaintenance dosing Increasing muscle and decreasing fat mass Total time spent today was 30 minutes of which greater than 50% was spent on coordinating and counseling Patient has been found to be normal with a BMI of (24). Patient has overweight class per BMI standards We are a board certified obesity and weight management practice Of note, some information is being carried forward from prior records for informational purposes only and is being cited so that efficiency, safety and quality of the patient's care is not compromised This note was prepared using voice recognition software and direct typing Please excuse inadvertent inward toll operator or typing errors, or uncorrected word substitutions Although every attempt has been made by the provider to proofread this document, occasional misspellings and typographical errors may still be present Due to the previous pandemic, and the use of personal protective equipment (PPE) This may decrease voice recognition accuracy Inadvertent inward toll operator errors may occur 06/19/2025 Anemia due to vitamin B12 deficiency, unspecified B12 deficiency type (ICD-10 - D51.9) #Weight Management 06/19/2025 @ target goal weight we disc options moving forward post 07/16/2025 given insurance coverage Continue Mounjaro, dis cmaintenance dosing Increasing muscle and decreasing fat mass Total time spent today was 30 minutes of which greater than 50% was spent on coordinating and counseling Patient has been found to be normal with a BMI of (24). Patient has overweight class per BMI standards We are a board certified obesity and weight management practice Of note, some information is being carried forward from prior records for informational purposes only and is being cited so that efficiency, safety and quality of the patient's care is not compromised This note was prepared using voice recognition software and direct typing Please excuse inadvertent inward toll operator or typing errors, or uncorrected word substitutions Although every attempt has been made by the provider to proofread this document, occasional misspellings and typographical errors may still be present Due to the previous pandemic, and the use of personal protective equipment (PPE) This may decrease voice recognition accuracy Inadvertent inward toll operator errors may occur 05/01/2025 Encounter for examination of blood pressure without abnormal findings (ICD-10 - Z01.30) #Weight Management 05/01/2025 Will follow-up on labs later this morning Continue Mounjaro Increasing muscle and decreasing fat mass Total time spent today was 30 minutes of which greater than 50% was spent on coordinating and counseling Patient has been found to be overweight with a BMI of (26). Patient has overweight class per BMI standards We are a board certified obesity and weight management practice Of note, some information is being carried forward from prior records for informational purposes only and is being cited so that efficiency, safety and quality of the patient's care is not compromised This note was prepared using voice recognition software and direct typing Please excuse inadvertent inward toll operator or typing errors, or uncorrected word substitutions Although every attempt has been made by the provider to proofread this document, occasional misspellings and typographical errors may still be present Due to the previous pandemic, and the use of personal protective equipment (PPE) This may decrease voice recognition accuracy Inadvertent inward toll operator errors may occur 03/10/2025 Anemia due to vitamin B12 deficiency, unspecified B12 deficiency type (ICD-10 - D51.9) #Weight Management 03/10/2025 Will attempt to keep her on the same molecule and send Mounjaro _update labs Total time spent today was 30 minutes of which greater than 50% was spent on coordinating and counseling Patient has been found to be overweight with a BMI of (26). Patient has overweight class per BMI standards We are a board certified obesity and weight management practice Of note, some information is being carried forward from prior records for informational purposes only and is being cited so that efficiency, safety and quality of the patient's care is not compromised This note was prepared using voice recognition software and direct typing Please excuse inadvertent inward toll operator or typing errors, or uncorrected word substitutions Although every attempt has been made by the provider to proofread this document, occasional misspellings and typographical errors may still be present Due to the previous pandemic, and the use of personal protective equipment (PPE) This may decrease voice recognition accuracy Inadvertent inward toll operator errors may occur 05/01/2025 Anemia due to vitamin B12 deficiency, unspecified B12 deficiency type (ICD-10 - D51.9) #Weight Management 05/01/2025 Will follow-up on labs later this morning Continue Mounjaro Increasing muscle and decreasing fat mass Total time spent today was 30 minutes of which greater than 50% was spent on coordinating and counseling Patient has been found to be overweight with a BMI of (26). Patient has overweight class per BMI standards We are a board certified obesity and weight management practice Of note, some information is being carried forward from prior records for informational purposes only and is being cited so that efficiency, safety and quality of the patient's care is not compromised This note was prepared using voice recognition software and direct typing Please excuse inadvertent inward toll operator or typing errors, or uncorrected word substitutions Although every attempt has been made by the provider to proofread this document, occasional misspellings and typographical errors may still be present Due to the previous pandemic, and the use of personal protective equipment (PPE) This may decrease voice recognition accuracy Inadvertent inward toll operator errors may occur Plan Of Treatment Pending Test Test Name Order Date COMPREHENSIVE METABOLIC PANEL 01/11/2022 HEMOGLOBIN A1C 01/11/2022 LIPID PANEL 01/11/2022 LIPID PANEL 08/22/2022 TSH 01/11/2022 Insulin Level 01/11/2022 VITAMIN B12 03/10/2025 LIPID PANEL, STANDARD 01/26/2024 LIPID PANEL, STANDARD 03/10/2025 COMPREHENSIVE METABOLIC PANEL 03/10/2025 COMPREHENSIVE METABOLIC PANEL 01/26/2024 CBC (INCLUDES DIFF/PLT) 01/26/2024 CBC (INCLUDES DIFF/PLT) 03/10/2025 HEMOGLOBIN A1c 03/10/2025 HEMOGLOBIN A1c 01/26/2024 TSH 01/26/2024 TSH 03/10/2025 VITAMIN D,25-OH,TOTAL,IA 03/10/2025 VITAMIN D,25-OH,TOTAL,IA 01/26/2024 Next Appt Details Provider Name:SHAHEEN MCKEON, 08/05/2025 08:15:00 AM, [address] [facility], [facility] [[email or web address]] [address], [place], [address], Insurance Providers Payer Name Payer Address Payer Phone Subscriber Number Group Number Insured Name Patient Relationship to Insured Coverage Start Date Coverage End Date [employer] [address] [address] [place] [address] [id number] [employer], Deepika Self - patient is the insured Medical (General) History Medical History History ICD Code headache seasonal allergies
--- NOTE | 2025-07-07 08:30 | MHC.OFFVIS ---
Intake Visit Reasons: 6 month f/u Allergies Penicillins (PCN) Allergy (Verified 07/07/25 08:35) Anaphylaxis Medication List - Last Reconciled 07/07/25 by Michelle Dwyer CNP amitriptyline 50 mg PO BEDTIME [id number]-rxlxadmosabau-pfhy 50-325-40 mg 1 tab PO Q8H 30 days tirzepatide (Mounjaro) mg subcut HPI Comments Details: She had more headaches this month with 10 straight days of headaches. Pain was mostly to back of head, moderately severe, throbbing-type. She tried Excedrin, Advil, Tylenol, Midol, and butalbital without relief. She saw chiropractor which helped. She has headaches almost daily, but headaches are worse before, during, and after period. Had visual munoz and U/S of eyes. ? drusen causing disc abnormalities. LP OP upper limits. Has bifrontal or occipital headache, more frequent around cycles, relieved by Excedrin within an hour. Usually wakes with headache and neck tightness. Migraines about 1x/month or less. Previous eye exam was suggestive of papilledema. Only gets pulsatile tinnitus in the right ear when she gets a headache. Has had headache since age 13 with tension type headaches and migraines. Had 2 migraines with visual aura where for 30-40 minutes had kaleidoscope in her vision and peripheral visual constriction followed by a bad headache for which she was seen in the emergency room. She used to get headaches 3 or 4 times a day to almost daily for which she used a lot of Excedrin [id number]. No triggers have been identified. No family history of migraines. Some dizziness and slight vertigo upon getting up for about 5 minutes. Pulsatile tinnitus in right ear that gets worse during migraine and better by putting pressure on right carotid. [facility] Medical History (Updated 07/07/25 @ 08:34 by Michelle Dwyer CNP) Pseudopapilledema Pseudotumor cerebri Lumbar disc disease Cerebral aneurysm Migraine Review of Systems Const Denies chills, Denies daytime sleepiness, Denies difficulty sleeping, Denies fatigue, Denies fever(s), Denies frequent falls, Reports headache(s), Denies increased appetite, Denies poor appetite, Denies snoring, Denies weakness, Denies weight gain and Denies weight loss Eyes Denies loss of vision ENT Denies vertigo, Denies dizziness, Reports headache(s) and Denies neck pain Card Denies chest pain at rest, Denies chest pain with activity, Denies syncope, Denies leg edema, Denies palpitations, Denies dyspnea and Denies dyspnea on exertion Resp Denies cough, Denies dyspnea, Denies dyspnea on exertion and Denies snoring GI Denies abdominal pain, Denies constipation, Denies heartburn, Denies diarrhea and Denies nausea Denies urinary frequency, Denies urinary incontinence and Denies urinary urgency Musc Denies abnormal gait, Denies back pain, Denies myalgias, Denies arthralgias, Denies neck pain, Denies numbness and Denies tingling Neuro Denies abnormal gait, Denies vertigo, Denies dizziness, Denies syncope, Denies frequent falls, Reports headache(s), Denies lack of coordination, Denies loss of vision, Denies memory loss, Denies numbness, Denies Other visual disturbances, Denies restless legs, Denies seizure-like activity, Denies tingling, Denies paresthesias, Denies tremor(s) and Denies weakness Psych Denies anxiety, Denies depression, Denies auditory hallucinations, Denies memory loss and Denies visual hallucinations Endo Denies fatigue and Denies palpitations Physical Exam Const Other: General Appearance:? normal, in no acute distress. Heart:? S1, S2 normal, no murmurs. Lungs:? clear anteriorly and posteriorly. Musculoskeletal:? normal. Extremities:? no edema. Psych:? alert, oriented, cognitive function intact, cooperative with exam. Neuro Other: Abnormal Neurological Findings:?R optic disc blurred. L optic disc without SVPs.? Mental Status: alert and oriented X 3. Normal attention, orientation, memory, and affect. Cranial Nerves: Pupils are equal, round, and reactive to light. Fundoscopy as above. External ocular muscles are intact. Visual munoz are full, no ptosis. Face is symmetrical, no facial weakness or droop. Facial sensations are normal. Tongue protrudes in midline. Palate elevates symmetrically. Shoulder shrugging is normal Motor Examination: Normal muscle tone, bulk and strength. No atrophy or fasciculations. No drift of the extended upper extremities. DTR 2+. Plantars are flexor. Sensory Exam: Normal light touch, temperature, pinprick, vibration, and joint-position sensations. Rhomberg sign is absent. Coordination: No ataxia. No titubation. Gait Exam: Within normal limits. Cerebellar Signs: Fdtlmi-rn-wifc is okay. Extrapyramidal System: No tremor, rigidity with normal facial expressions. No bradykinesia. No bradyphrenia. Normal arm swing and posture. No propulsion or retropulsion. Speech: Normal. Results Reviewed Results Reviewed: CTA normal. 11/02/2023 LP OP 19cm H2O. Assessment & Plan Assessment & Plan (1) Tension headache: Code(s): G44.209 - Tension-type headache, unspecified, not intractable Category: Medical Plan: Continue amitriptyline 25mg 2 tablets at bedtime. (2) Migraine with aura: Comment: Pulsative tinnitus on R with migraine since 2014 Code(s): G43.109 - Migraine with aura, not intractable, without status migrainosus Category: Medical Qualifiers: Status migrainosus presence: without status migrainosus Intractability: not intractable Qualified Code(s): G43.109 - Migraine with aura, not intractable, without status migrainosus Plan: Continue qvhhgoprko-ZCNU-fxgo 50-325-40mg 1 tablet q8h as needed for migraine #15 for 30 days. Start topiramate 25mg 1 tablet at bedtime x1 week then 2 tablets at bedtime, use/side effect. Follow up in 2 months or sooner as needed. Medications: New amitriptyline 50 mg (2 x 25 mg) PO BEDTIME 180 tabs 1RF 90 days topiramate 25 mg orally 1 tablet at bedtime x1 week then 2 tablets at bedtime; 60 tabs 2RF 30 days Coding Level of Care Code Est Pt Level 4 (18146) Diagnoses Tension headache G44.209 Migraine with aura and without status migrainosus, not intractable G43.109 Status migrainosus presence: without status migrainosus Intractability: not intractable
== END 2025-07-07 08:47 | disposition home or self-care (01) ==
LOC: HO.HSM 07:53
PROVIDERS: PCP Internal Medicine; Referring Provider Internal Medicine; Visit Provider Registered Nurse
DX: G44.209 Tension-type headache, unspecified, not intractable (principal); G43.109 Migraine with aura, not intractable, without status migrainosus
CPT/HCPCS: 99214